=== PATIENT | female | born 1955 | race Two or more races ===

== ENCOUNTER 2016-07-22 14:35 | Observation (INO) | payer MEDICAID ==
[2016-07-22] MEDS ORDERED: LEUCOVORIN CALCIUM IV SCH (15:30)
[2016-07-22] MEDS ORDERED: D5W IV SCH (15:30)
[2016-07-22] MEDS ORDERED: FLUOROURACIL IV SCH (16:30)
[2016-07-22] MEDS ORDERED: BACITRACIN OINTMENT 1 PACKET TP ONE (17:12)
[2016-07-22 19:46] VITALS: BP 156/79; PULSE 69; RESP 16; TEMP 97.9; O2SAT 98
== END 2016-07-22 19:30 ==
LOC: F1N 14:35
PROVIDERS: ADMIT Internal Medicine Hematology & Oncology; ATTEND Internal Medicine Hematology & Oncology
DX: Z51.11 Encounter for antineoplastic chemotherapy (principal); C18.9 Malignant neoplasm of colon, unspecified
CPT/HCPCS: J0640; J9190

== ENCOUNTER 2016-07-29 09:47 | Observation (INO) | payer MEDICAID ==
[2016-07-29 10:06] VITALS: BP 126/75; PULSE 92; RESP 16; TEMP 97.5; O2SAT 95
[2016-07-29] MEDS ORDERED: LEUCOVORIN CALCIUM IV ONE (11:00)
[2016-07-29] MEDS ORDERED: D5W IV ONE (11:00)
[2016-07-29] MEDS ORDERED: FLUOROURACIL IV ONE (12:00)
== END 2016-07-29 16:00 ==
LOC: F1N 09:47
PROVIDERS: ADMIT Internal Medicine Hematology & Oncology; ATTEND Internal Medicine Hematology & Oncology
DX: Z51.11 Encounter for antineoplastic chemotherapy (principal); C18.9 Malignant neoplasm of colon, unspecified
CPT/HCPCS: J0640; J9190

== ENCOUNTER 2016-08-05 09:45 | Observation (INO) | payer MEDICAID ==
[2016-08-05 10:37] VITALS: BP 127/73
[2016-08-05] MEDS ORDERED: LEUCOVORIN CALCIUM IV ONE (11:00)
[2016-08-05] MEDS ORDERED: D5W IV ONE (11:00)
[2016-08-05] MEDS ORDERED: FLUOROURACIL IV ONE (12:00)
[2016-08-05 19:41] VITALS: PULSE 72; RESP 20; TEMP 97.9; O2SAT 95
== END 2016-08-05 14:39 | disposition home or self-care (01) ==
LOC: F1N 09:45
PROVIDERS: ADMIT Internal Medicine Hematology & Oncology; ATTEND Internal Medicine Hematology & Oncology
DX: Z51.11 Encounter for antineoplastic chemotherapy (principal); C18.9 Malignant neoplasm of colon, unspecified
CPT/HCPCS: J0640; J9190

== ENCOUNTER 2016-12-04 11:37 | Inpatient (IN) | payer MEDICAID ==
--- NOTE | 2016-12-04 14:19 | GCON ---
[f rep st] CONSULTATION Corrected report INPATIENT ONCOLOGY CONSULTATION DATE OF CONSULTATION: 12/04/2016 REQUESTING PHYSICIAN: Marcus Batres Jr, MD REASON FOR CONSULTATION: Admission for chemotherapy. HISTORY OF PRESENT ILLNESS: The patient is a 61-year-old woman with metastatic colon cancer. She presented in June 2015 with liver metastases. She was treated with FOLFOX from August through March 2016 with good partial response and then until recently, has been on maintenance capecitabine. Last month, she developed some abdominal pain. A CT scan appeared to show progression of her liver mets, and her CEA was rising from a jasbir of 112 in June up to 889. Dr. Barth elected to treat her with second-line FOLFIRI. They discussed hospice care but she was interested in further therapy. She reports that her abdominal pain has resolved and she is generally feeling well, but I do note she has lost about 12 pounds in the past month or so. PAST MEDICAL HISTORY: Otherwise unremarkable. CURRENT MEDICATIONS: Include Lopressor 50 mg b.i.d., morphine as needed, Voltaren as needed for pain. ALLERGIES: She has no known drug allergies. FAMILY HISTORY: Noncontributory. SOCIAL HISTORY: She is from [facility] and speaks [place]. She was living in a skilled nursing but now apparently is at home with her family. REVIEW OF SYSTEMS: Other than pertinent positives in the HPI, a 14-point review of systems is negative. PHYSICAL EXAMINATION: VITAL SIGNS: Her temperature is 36.6, blood pressure 110/ 70, heart rate 65 and regular, oxygen saturation 97% on room air. GENERAL: She is a thin woman in no acute distress. HEENT: Her sclerae are anicteric. Oropharynx is clear. NECK: Supple. No lymphadenopathy. LUNGS: Clear auscultation bilaterally. CARDIAC: Regular rate and rhythm. No murmurs, gallops , rubs. ABDOMEN: Normoactive bowel sounds. Nontender. Nondistended. EXTREMITIES : Without edema, 2+ pulses. NEUROLOGIC: She is alert and x3. The interview was conducted through a telephonic deposition operator. LABORATORY DATA: White count 10.6, hemoglobin 12.12, platelets 227. Sodium 138 , potassium 4.1, chloride 103, bicarb 24, BUN of 9, creatinine 0.6. Alkaline phosphatase 181, AST 61, ALT 33, total bilirubin 0.92. IMPRESSION: This is a 61-year-old woman with metastatic colorectal cancer now presenting for second-line FOLFIRI chemotherapy. RECOMMENDATIONS: 1. Proceed with chemotherapy as indicated. 2. Will continue to use morphine and other analgesics for pain if it arises. 3. I counseled her on the possibility for significant diarrhea with this regimen and instructed her to take Lomotil if that starts up at home. I emphasized the need for early treatment because the diarrhea can become quite severe in patients if they delay in treating it. We will continue to follow the patient with you while she is in the hospital. /[id number]/MODL Fredy WT 12/04/16, elizabeth KEENE
[2016-12-04] MEDS ORDERED: ONDANSETRON 4 MG/2 ML VIAL IVP PRN (14:37)
[2016-12-04] MEDS ORDERED: ONDANSETRON DISINTEGRATING 4 MG TAB PO PRN ×2 (14:37→14:45)
[2016-12-04] MEDS ORDERED: ALBUTEROL 3 ML DEYVIAL IH PRN (14:37)
[2016-12-04] MEDS ORDERED: ACETAMINOPHEN 325 MG TAB PO PRN (14:37)
[2016-12-04] MEDS ORDERED: ZOLPIDEM TARTRATE 5 MG TAB PO PRN (14:37)
[2016-12-04] MEDS ORDERED: ALBUTEROL 60 PUFFS/8 GM MDI IH PRN (14:37)
[2016-12-04] MEDS ORDERED: ALTEPLASE 2 MG VIAL IVP PRN (14:37)
[2016-12-04] MEDS ORDERED: METOPROLOL TARTRATE 50 MG TAB PO SCH (14:45)
[2016-12-04] MEDS ORDERED: BENADRYL MM PRN (14:45)
[2016-12-04] MEDS ORDERED: MAALOX MM PRN (14:45)
[2016-12-04] MEDS ORDERED: PROCHLORPERAZINE MALEATE 10 MG TAB PO PRN (14:45)
[2016-12-04] MEDS ORDERED: SENNOSIDES/DOCUSATE SODIUM TAB PO PRN (14:45)
[2016-12-04] MEDS ORDERED: LIDOCAINE MM PRN (14:45)
[2016-12-04] MEDS ORDERED: IBUPROFEN 600 MG TAB PO PRN (14:45)
[2016-12-04] MEDS ORDERED: CEPACOL LOZENGE PO PRN (14:45)
[2016-12-04] MEDS ORDERED: ALBUTEROL 200 PUFFS/18 GM MDI IH PRN (14:53)
[2016-12-04] MEDS ORDERED: hydrALAZINE 20 MG/ML VIAL IVP PRN (17:02)
[2016-12-04] MEDS: HYDROCODONE/APAP 5/325 TAB PO PRN (17:16)
[2016-12-04] MEDS ORDERED: PALONOSETRON HCL 0.25 MG/5 ML VIAL IVP SCH (17:30)
[2016-12-04] MEDS ORDERED: DEXAMETHASONE SOD PHOSPHATE 10 MG in NS 50 ML IV SCH (17:30)
--- NOTE | 2016-12-04 17:30 | GHP ---
[f rep st] HISTORY AND PHYSICAL DATE OF ADMISSION: 12/04/2016 CHIEF COMPLAINT: Preparation for chemotherapy. HISTORY OF PRESENT ILLNESS: This is a 61-year-old female admitted for chemotherapy. She has known stage IV colon carcinoma and has been undergoing sequential chemotherapy. Through an research chef, I have determined that she has no other medical complaints at this time. She is reporting intermittent feelings of dizziness, which have been a chronic problem for sometime, without symptoms of vertigo, nausea or vomiting. She denies having fever, chills, sweats, cough, shortness of breath, abdominal pain, nausea or vomiting. She is reporting some pain at the site of a PICC line which was placed today. There are no signs of bleeding. She denies headache or fever. PAST MEDICAL HISTORY: 1. Stage IV metastatic colon carcinoma. 2. Hypertension. 3. GERD. 4. Chronic dizziness and disequilibrium. PAST SURGICAL HISTORY: None. CURRENT MEDICATIONS: Within the EMR and will be reconciled when available. ALLERGIES: Iodinated contrast media. SOCIAL HISTORY: She lives at the [facility]. Denies alcohol or illicit drug use. No use of tobacco. PHYSICAL EXAMINATION: GENERAL: A pleasant alert female who speaks only [place], and information was obtained through research chef. VITAL SIGNS: Mild hypertension at 167/58, heart rate 55. Her room air saturation is normal. There is no respiratory distress. HEENT: Normal. No signs of meningismus or head trauma. LUNGS: Clear to P and A without wheezing or rales. HEART: Singular S1 and S2. No murmur or gallop. ABDOMEN: Thin. Normoactive bowel sounds. There seems to be some very mild tenderness on palpation overall in the abdomen without any palpable mass or rebound noted. She is a thin lady overall. Pulses are 2+ and normal at the femoral region without bruits. EXTREMITIES: No edema, cyanosis or clubbing. NEUROLOGIC: Symmetric and normal. She has appropriate and normal interaction. LABORATORY: No laboratories available for review. Laboratories performed on show white count slightly elevated at 10,000, hemoglobin 12.2. Chemistry panel is normal except for slight elevated glucose of 120. AST is elevated at 61 and an alkaline phosphatase at 181. Red cell indices are normal, and she has a slightly increased neutrophil count at 78%. ASSESSMENT: 1. Stage IV metastatic colon carcinoma. Patient is admitted for chemotherapy of FOLFIRI. 2. Mild hypertension. Her home medications will be reconciled, and we will begin her antihypertensive regimen. 3. Gastroesophageal reflux disease. Currently stable. 4. Chronic dizziness. We will continue her usual medications. 5. Code status is full. 6. Deep venous thrombosis prophylaxis will be with Lovenox. Billing: admit to inpatient status for chemotherapy This admission required 45 minutes. /[id number]/MODL MTDD
[2016-12-04] MEDS ORDERED: LEUCOVORIN CALCIUM IV SCH (18:00)
[2016-12-04] MEDS ORDERED: D5W IV SCH ×3 (18:00→20:05)
[2016-12-04] MEDS ORDERED: IRINOTECAN HCL IV SCH (18:00)
[2016-12-04] MEDS: amLODIPine BESYLATE 5 MG TAB PO SCH (18:01)
[2016-12-04] MEDS: ACYCLOVIR 400 MG TAB PO SCH (18:24)
[2016-12-04] MEDS ORDERED: FLUOROURACIL IV SCH ×2 (20:00→20:05)
[2016-12-04] MEDS: morphINE SR 30 MG TAB PO SCH (20:55)
[2016-12-04] MEDS: MIRTAZAPINE 15 MG ODTAB PO SCH (20:55)
[2016-12-04] MEDS: METOPROLOL TARTRATE 50 MG TAB PO SCH (20:55)
[2016-12-05 05:36] LABS: % IMMATURE GRANULYOCYTES 0.6 % (0.0-1.1); ABSOLUTE IMMATURE GRANULOCYTES 0.03 10^3/uL (0.00-0.10); ADD DIFF? NO; ADD MORPH? NO; ADD SCAN? NO; ATYPICAL LYMPHOCYTE FLAG 0 (0-99); FRAGMENT RBC FLAG 0 (0-99); HEMATOCRIT 33.2 % (38.0-47.0); HEMOGLOBIN 11.1 g/dL (12.6-16.3); LEFT SHIFT FLG 10 (0-99); LIPEMIA HEMOLYSIS FLAG 80 (0-99); MEAN CELL HEMOGLOBIN 29.3 pg (27.9-34.1); MEAN CELL HEMOGLOBIN CONCENTR. 33.4 g/dL (32.4-36.7); MEAN CELL VOLUME 87.6 fL (81.5-99.8); MEAN PLATELET VOLUME 10.9 fL (8.7-11.7); PLATELET CLUMPS FLAG 10 (0-99); PLATELET COUNT 132 10^3/uL (150-400); RED BLOOD CELL COUNT 3.79 10^6/uL (4.18-5.33); RED CELL DISTRIBUTION WIDTH 15.1 % (11.5-15.2)
[2016-12-05 05:46] LABS: ANION GAP 9 mEq/L (8-16); CALCIUM 9.4 mg/dL (8.5-10.4); CARBON DIOXIDE 24 mEq/l (22-31); CHLORIDE 105 mEq/L (97-110); CREATININE 0.6 mg/dL (0.6-1.0); GLOMERULAR FILTRATION RATE > 60; GLUCOSE 182 mg/dL (70-100); POTASSIUM 4.3 mEq/L (3.5-5.2); SODIUM 138 mEq/L (134-144)
[2016-12-05] MEDS ORDERED: NON-FORMULARY NEW DRUG (Omeprazole [Omeprazole] 40 MG) PO SCH (07:30)
[2016-12-05] MEDS: ACYCLOVIR 400 MG TAB PO SCH ×3 (08:36→19:22)
[2016-12-05] MEDS: amLODIPine BESYLATE 5 MG TAB PO SCH (08:37)
[2016-12-05] MEDS: ENOXAPARIN 40 MG/0.4 ML SYR SC SCH (08:41)
[2016-12-05] MEDS: METOPROLOL TARTRATE 50 MG TAB PO SCH ×2 (08:41→21:06)
[2016-12-05] MEDS: PANTOPRAZOLE SODIUM 40 MG TAB PO SCH (08:42)
[2016-12-05] MEDS: morphINE SR 30 MG TAB PO SCH ×2 (08:42→21:07)
--- NOTE | 2016-12-05 10:50 | SOAPPROG ---
SOAP Progress Note Assessment/Plan: Assessment: Metastatic colon cancer Plan: - continue chemo (FOLFIRI) - d/c to home when 48h 5FU infusion complete tomorrow 12/05/16 10:49 Subjective: feels well, no complaints. Objective: exam unchanged Vital Signs Temp Pulse Resp BP Pulse Ox 36.8 C 58 L 16 112/59 L 94 12/05/16 08:35 12/05/16 08:41 12/05/16 08:35 12/05/16 08:41 12/05/16 08:35 Laboratory Results 12/05/16 05:25 12/05/16 05:25 12/04/16 12/05/16 12/06/16 05:59 05:59 05:59 Intake Total 2260 Output Total 1999 Balance 388 ICD10 Worksheet Patient Problems: Problems Problem Status Onset Stomatitis Acute Colon cancer metastasized to liver Chronic
[2016-12-05] MEDS: oxyCODONE IR 5 MG TAB PO PRN (14:59)
[2016-12-05] MEDS: MBX SOLN 30 ML BOTTLE PO PRN (15:00)
--- NOTE | 2016-12-05 16:33 | HOSPPROG ---
Hospitalist Progress Note Assessment/Plan: 61-year-old female admitted for chemotherapy for her stage IV colon cancer. -stage IV colon cancer undergoing FOLFIRI chemotherapy. FOLFIRI involves fluorouracil infusion over a 48 hour period. Patient tolerating the infusion well. -hypertension: In good control -GERD: Stable -depression and anxiety stable -disequilibrium syndrome stable Plan: Continue chemotherapy over the next 48 hours. Discharge following the completion of her chemotherapy Subjective: No complaints the patient speaks only diari a [employer] transmission tester is available by phone. Objective: Vital Signs Temp Pulse Resp BP Pulse Ox 36.6 C 62 16 113/40 L 96 12/05/16 12:00 12/05/16 12:00 12/05/16 12:00 12/05/16 12:00 12/05/16 12:00 Laboratory Results 12/05/16 05:25 12/05/16 05:25 12/04/16 12/05/16 12/06/16 05:59 05:59 05:59 Intake Total 2388 Output Total 2000 Balance 388 - Time Spent With Patient Time Spent with Patient: greater than 25 minutes Time Spent with Patient: Greater than 25 minutes spent on this patients care, greater than 50% of time spent counseling, educating, and coordinating care regarding the above mentioned plan. - Pending Discharge Pending Discharge Within 24 Hours: No Pending Discharge Within 48 Hours: Yes Pending Discharge Date: 12/07/16 Pending Discharge Time: 11:00 - Physical Exam Constitutional: no apparent distress Eyes: PERRL Ears, Nose, Mouth, Throat: moist mucous membranes, hearing normal Cardiovascular: regular rate and rhythym, no murmur, rub, or gallop Respiratory: no respiratory distress, no rales or rhonchi Gastrointestinal: normoactive bowel sounds, soft, non-tender abdomen, no palpable masses Neurologic: AAOx3, CN II-XII Intact Psychiatric: interacting appropriately ICD10 Worksheet Patient Problems: Problems Problem Status Onset Stomatitis Acute Colon cancer metastasized to liver Chronic
[2016-12-05] MEDS ORDERED: FLUOROURACIL IV SCH (19:05)
[2016-12-05] MEDS ORDERED: D5W IV SCH (19:05)
[2016-12-05] MEDS: MIRTAZAPINE 15 MG ODTAB PO SCH (21:07)
[2016-12-06] MEDS: ACYCLOVIR 400 MG TAB PO SCH ×3 (08:19→17:41)
[2016-12-06] MEDS: ENOXAPARIN 40 MG/0.4 ML SYR SC SCH (08:19)
[2016-12-06] MEDS: amLODIPine BESYLATE 5 MG TAB PO SCH (08:20)
[2016-12-06] MEDS: PANTOPRAZOLE SODIUM 40 MG TAB PO SCH (08:20)
[2016-12-06] MEDS: METOPROLOL TARTRATE 50 MG TAB PO SCH ×3 (08:20→20:50)
[2016-12-06] MEDS: morphINE SR 30 MG TAB PO SCH ×2 (08:37→20:48)
--- NOTE | 2016-12-06 09:09 | SOAPPROG ---
ARLENE Progress Note Assessment/Plan: Assessment: 1.) Stage IV colon cancer on the FOLFIRI regimen, the last of the 5 FU continuous infusion to finish today. 2.) HTN 3.) GERD 4.) Discharge planning: Patient appears stable to be sent home after completing her 5 FU infusion today. She states she does not need Rx for discharge and understands the plan for follow up at [facility] in the next week or so. Plan:1.) Home after completion of 5 FU infusion later today. 2.) [facility] appt. for follow up in the next 10 days. 12/06/16 09:06 Subjective: Pt reports that her left side of tongue is sore, but reports no other adverse sx. Reports no diarrhea, or N/V Objective: Pt. in NAD, at bedside. HEENT- anicteric, there is mild Left sided tongue mucosal shallow ulcer Neck- supple Chest- clear CVS- RSR, no extra HS ABD- soft, NT BS +, no mass or HSM, or ascites. EXT- no edema. Skin intact VS and labs as noted above. Vital Signs Temp Pulse Resp BP Pulse Ox 36.8 C 74 16 128/69 H 97 12/06/16 04:00 12/06/16 04:00 12/06/16 04:00 12/06/16 04:00 12/06/16 04:00 Laboratory Results 12/05/16 05:25 12/05/16 05:25 12/05/16 12/06/16 12/07/16 05:59 05:59 05:59 Intake Total 7607 0502 Output Total 1999 1161 Balance 388 2102 ICD10 Worksheet Patient Problems: Problems Problem Status Onset Stomatitis Acute Colon cancer metastasized to liver Chronic
--- NOTE | 2016-12-06 12:08 | HOSPPROG ---
Hospitalist Progress Note Assessment/Plan: 61-year-old female admitted for chemotherapy for her stage IV colon cancer. -stage IV colon cancer undergoing FOLFIRI chemotherapy. FOLFIRI involves fluorouracil infusion over a 48 hour period. Patient tolerating the infusion well. -hypertension: In good control -GERD: Stable -depression and anxiety stable -disequilibrium syndrome stable Plan: Continue chemotherapy over the next 48 hours. Discharge following the completion of her chemotherapy Subjective: case d/w dr barry. no complaints Objective: Vital Signs Temp Pulse Resp BP Pulse Ox 38.6 C H 76 16 115/61 97 12/06/16 11:39 12/06/16 11:39 12/06/16 11:39 12/06/16 11:39 12/06/16 11:39 Laboratory Results 12/05/16 05:25 12/05/16 05:25 12/05/16 12/06/16 12/07/16 05:59 05:59 05:59 Intake Total 2388 3752 Output Total 2000 2600 Balance 388 1152 - Physical Exam Constitutional: no apparent distress, appears nourished Eyes: PERRL, anicteric sclera Ears, Nose, Mouth, Throat: moist mucous membranes, hearing normal Cardiovascular: regular rate and rhythym, no murmur, rub, or gallop Respiratory: no respiratory distress, no rales or rhonchi Gastrointestinal: normoactive bowel sounds, soft, non-tender abdomen Genitourinary: no bladder fullness, No espinoza in urethra Skin: warm, normal color Musculoskeletal: full muscle strength Neurologic: AAOx3 ICD10 Worksheet Patient Problems: Problems Problem Status Onset Stomatitis Acute Colon cancer metastasized to liver Chronic
[2016-12-06] MEDS: oxyCODONE IR 5 MG TAB PO PRN (14:40)
[2016-12-06] MEDS: MIRTAZAPINE 15 MG ODTAB PO SCH (20:48)
[2016-12-06] MEDS: MBX SOLN 30 ML BOTTLE PO PRN (22:07)
[2016-12-07] MEDS: oxyCODONE IR 5 MG TAB PO PRN (09:42)
[2016-12-07] MEDS: amLODIPine BESYLATE 5 MG TAB PO SCH (09:43)
[2016-12-07] MEDS: PANTOPRAZOLE SODIUM 40 MG TAB PO SCH (09:43)
[2016-12-07] MEDS: morphINE SR 30 MG TAB PO SCH ×2 (09:43→21:19)
[2016-12-07] MEDS: ENOXAPARIN 40 MG/0.4 ML SYR SC SCH (09:43)
[2016-12-07] MEDS: METOPROLOL TARTRATE 50 MG TAB PO SCH ×2 (09:43→21:27)
[2016-12-07] MEDS: ACYCLOVIR 400 MG TAB PO SCH ×3 (09:43→18:22)
--- NOTE | 2016-12-07 10:05 | SOAPPROG ---
ARLENE Progress Note Assessment/Plan: Assessment: 1.) Stage IV colon cancer on the FOLFIRI regimen, the last of the 5 FU continuous infusion which has finished today. 2.) HTN 3.) GERD 4.) Discharge planning: Patient appears stable to be sent home after completing her 5 FU infusion, perhaps today. She states she does not need Rx for discharge and understands the plan for follow up at [facility] in the next week or so. Plan:1.) Home after completion of 5 FU infusion later today, if possible, 2.) [facility] appt[facility] for follow up in the next 10 days. 3.) Discharge planning: I attempted to utilize the Language line at the bedside with the assistance of her nurse, Kristen today. A [employer] russian language instructor was not available at 10 AM this AM, and we have scheduled to have an laborer gold leaf call back at 1230 PM today to review her understanding of discharge, med use, symptom control and follow up instructions. Will modify discharge plans after gaining more information with the use of the laborer gold leaf service. 12/07/16 10:01 Subjective: Pt. having constipation and finished her chemotherapy overnight without having emesis or diarrhea. Objective: Afebrile, VSS, as noted here. HEENT- anicteric, no oral thrush Neck- supple, Chest- clear CVS- RSR, no extra HS ABD- BS+, soft, NT, no mass or HSM EXT- edema not present Labs as noted here: Hgb 11.1 Vital Signs Temp Pulse Resp BP Pulse Ox 37.2 C 103 H 18 121/56 H 94 12/07/16 08:00 12/07/16 08:00 12/07/16 08:00 12/07/16 08:00 12/07/16 08:00 Laboratory Results 12/05/16 05:25 12/05/16 05:25 12/06/16 12/07/16 12/08/16 05:59 05:59 05:59 Intake Total 3752 2500 Output Total 2600 Balance 1152 2500 ICD10 Worksheet Patient Problems: Problems Problem Status Onset Stomatitis Acute Colon cancer metastasized to liver Chronic
--- NOTE | 2016-12-07 13:04 | HOSPPROG ---
Hospitalist Progress Note Assessment/Plan: 61-year-old female admitted for chemotherapy for her stage IV colon cancer. -stage IV colon cancer undergoing FOLFIRI chemotherapy. FOLFIRI involves fluorouracil infusion over a 48 hour period. has completed chemotherapy -hypertension: In good control -GERD: Stable -depression and anxiety stable -disequilibrium syndrome stable dispo: will dc tomorrow as I have concern that she will represent this evening if discharged Subjective: case d/w dr rodríguez. history obtained thru [place] historic interpreter. patient expresses desire to stay in hospital "a fe more days" given that she had a readmission after dc recently Objective: Vital Signs Temp Pulse Resp BP Pulse Ox 36.8 C 80 18 103/48 L 95 12/07/16 11:58 12/07/16 11:58 12/07/16 11:58 12/07/16 11:58 12/07/16 11:58 Laboratory Results 12/05/16 05:25 12/05/16 05:25 12/06/16 12/07/16 12/08/16 05:59 05:59 05:59 Intake Total 3752 2500 Output Total 2600 Balance 1152 2500 - Physical Exam Constitutional: no apparent distress, appears nourished Eyes: PERRL, anicteric sclera Ears, Nose, Mouth, Throat: hearing normal Cardiovascular: regular rate and rhythym, no murmur, rub, or gallop Respiratory: no respiratory distress, no rales or rhonchi Gastrointestinal: normoactive bowel sounds, soft, non-tender abdomen Genitourinary: no bladder fullness, No espinoza in urethra Skin: warm, normal color Musculoskeletal: full muscle strength, no muscle tenderness Neurologic: AAOx3 Psychiatric: interacting appropriately, not anxious ICD10 Worksheet Patient Problems: Problems Problem Status Onset Stomatitis Acute Colon cancer metastasized to liver Chronic
[2016-12-07] MEDS: MBX SOLN 30 ML BOTTLE PO PRN ×3 (15:11→21:20)
[2016-12-07] MEDS: LOPERAMIDE HCL 2 MG CAP PO PRN ×2 (18:22→21:19)
[2016-12-07] MEDS: MIRTAZAPINE 15 MG ODTAB PO SCH (21:19)
[2016-12-08] MEDS: morphINE SR 30 MG TAB PO SCH ×2 (08:43→22:15)
[2016-12-08] MEDS: amLODIPine BESYLATE 5 MG TAB PO SCH (08:43)
[2016-12-08] MEDS: PANTOPRAZOLE SODIUM 40 MG TAB PO SCH (08:43)
[2016-12-08] MEDS: METOPROLOL TARTRATE 50 MG TAB PO SCH ×2 (08:44→22:09)
[2016-12-08] MEDS: ACYCLOVIR 400 MG TAB PO SCH ×2 (08:44→18:11)
[2016-12-08] MEDS: ENOXAPARIN 40 MG/0.4 ML SYR SC SCH (08:44)
[2016-12-08] MEDS: MBX SOLN 30 ML BOTTLE PO PRN ×3 (08:45→16:28)
--- NOTE | 2016-12-08 10:42 | HOSPPROG ---
Hospitalist Progress Note Assessment/Plan: 61-year-old female admitted for chemotherapy for her stage IV colon cancer. -stage IV colon cancer undergoing FOLFIRI chemotherapy. FOLFIRI involves fluorouracil infusion over a 48 hour period. has completed chemotherapy -hypertension: In good control -GERD: Stable -depression and anxiety stable -disequilibrium syndrome stable dispo: home today > 30 minutes Subjective: c/o tongue pain Objective: Vital Signs Temp Pulse Resp BP Pulse Ox 36.5 C 74 16 131/67 H 96 12/08/16 08:31 12/08/16 08:31 12/08/16 08:31 12/08/16 08:31 12/08/16 08:31 Laboratory Results 12/05/16 05:25 12/05/16 05:25 12/07/16 12/08/16 12/09/16 05:59 05:59 05:59 Intake Total 2500 850 Balance 2500 850 - Physical Exam Constitutional: no apparent distress, appears nourished Eyes: PERRL, anicteric sclera Ears, Nose, Mouth, Throat: moist mucous membranes, hearing normal Cardiovascular: regular rate and rhythym, no murmur, rub, or gallop Respiratory: no respiratory distress, no rales or rhonchi Gastrointestinal: normoactive bowel sounds, soft, non-tender abdomen Genitourinary: no bladder fullness, No espinoza in urethra Skin: warm, normal color Musculoskeletal: full muscle strength, no muscle tenderness Neurologic: AAOx3 ICD10 Worksheet Patient Problems: Problems Problem Status Onset Stomatitis Acute Colon cancer metastasized to liver Chronic
--- NOTE | 2016-12-08 11:12 | PDIAF ---
- Diagnosis Diagnosis: metastatic colon cancer Code Status: Full Code - Medication Management Discharge Medications: Medications to Continue on Transfer Loperamide HCl [Loperamide] 2 mg PO DAILY PRN 11/09/15 [Last Taken Unknown] Ondansetron Odt [Zofran Odt 4 mg (*)] 8 mg PO Q8 PRN 11/09/15 [Last Taken ] Sennosides/Docusate Sodium [Senokot-S] 1 tab PO BID PRN 11/09/15 [Last Taken 04/04 08:00] Metoprolol Tartrate [Lopressor 50 mg (*)] 50 mg PO BID 11/26/15 [Last Taken 08:00] Acyclovir [Zovirax 400 mg (*)] 400 mg PO TIDMEAL 01/01/16 [Last Taken 06/10/16 12:00] Ibuprofen [Motrin (*)] 600 mg PO Q8 PRN 01/01/16 [Last Taken Unknown] morphINE SR [MS Contin/Oramorph SR 30 mg (*)] 30 mg PO BID 01/02/16 [Last Taken 06/10/16 08:00] Benzocaine/Menthol 15/4 [Cepacol Lozenge] 1 ea PO Q2 PRN 04/03/16 [Last Taken Unknown] Mirtazapine [Remeron soltab 15 mg (*)] 7.5 mg PO HS 04/03/16 [Last Taken ] amLODIPine BESYLATE [Norvasc 5 mg (*)] 5 mg PO DAILY 04/03/16 [Last Taken ] oxyCODONE IR [Oxycodone Ir (*)] 5 mg PO Q4 PRN 04/03/16 [Last Taken Unknown] Maalox/Benadryl/Lidocaine Suspension 5 ml MM Q2 PRN 12/04/16 [Last Taken Unknown ] Omeprazole 40 mg PO DAILYAC 12/04/16 [Last Taken Unknown] Prochlorperazine Maleate [Compazine 10mg (*)] 10 mg PO Q6 PRN 12/04/16 [Last Taken Unknown] Lidocaine 2% Viscous 10 ml PO Q4 PRN #100 ml 12/08/16 [Last Taken Unknown] Discharge Medications: Refer to the Discharge Home Medication list for PRN reason. - Orders Services needed: Home [facility] Care Face to Face: I certify that this patient was under my care and that I had the required [id number] encounter meeting the encounter requirements on the discharge day. My findings support the fact that the patient is homebound as defined in CMS Chapter 7 Medicare Benefits Manual 30.1.1, The condition of the patient is such that there exists a normal inability to leave home and consequently, leaving home would require a considerable and taxing effort. - Follow Up Care Current Providers and Referrals: Marcus Batres JR, MD [Primary Care Provider] -
--- NOTE | 2016-12-08 12:15 | GDS ---
[f rep st] DISCHARGE SUMMARY DISCHARGE DIAGNOSES: 1. Metastatic colon cancer undergoing chemotherapy while here. 2. Hypertension. 3. Gastroesophageal reflux disease. 4. Tongue lesion felt secondary to chemotherapy. HOSPITAL COURSE: Please see admission history and physical by Dr. Marcus Batres. Patient castillo weathers for elective chemotherapy. She received it while inpatient. The chemotherapy regimen is FOLFIR I. She tolerated it well without neutropenia or fever. She did have this tongue lesion. I spoke with the patient through the [facility] clearance coordinator, and the patient expressed a desire to stay in the hospital a couple of days following the cessation of chemotherapy because she had a readmission at some point. She did stay 1 additional day, but at this point in time, the patient is eating well , tolerating well and going home today. She had [facility] been in a penit[facility]. She will be dis charged home. She will have [facility]. I did give her some viscous lidocaine for her ivan conradJeanne /[id number]/MODL
[2016-12-08] MEDS: oxyCODONE IR 5 MG TAB PO PRN ×2 (12:41→22:18)
--- NOTE | 2016-12-08 13:00 | SOAPPROG ---
SOAP Progress Note Assessment/Plan: Assessment: Assessment: 1.) Stage IV colon cancer on the FOLFIRI regimen, 2.) HTN 3.) GERD 4.) mucositis developing over the last 24 hours Plan:will hold discharge today, may need hydration, continue with pain control, topical rx 12/08/16 12:57 Subjective: Mouth pain Objective: Vital Signs Temp Pulse Resp BP Pulse Ox 98.1 F 74 16 131/67 H 96 12/08/16 12:45 12/08/16 08:31 12/08/16 08:31 12/08/16 08:31 12/08/16 08:31 Laboratory Results 12/05/16 05:25 12/05/16 05:25 12/07/16 12/08/16 12/09/16 05:59 05:59 05:59 Intake Total 2500 850 Balance 2500 850 Physical Exam - Physical Exam General Appearance: moderate distress EENT: other (mucositis lip and lateral tongue) Respiratory: normal breath sounds Cardiac/Chest: regular rate, rhythm Abdomen: normal bowel sounds, non-tender ICD10 Worksheet Patient Problems: Problems Problem Status Onset Stomatitis Acute Colon cancer metastasized to liver Chronic
[2016-12-08] MEDS: MIRTAZAPINE 15 MG ODTAB PO SCH (22:15)
[2016-12-09] MEDS: PANTOPRAZOLE SODIUM 40 MG TAB PO SCH (06:28)
[2016-12-09] MEDS: MBX SOLN 30 ML BOTTLE PO PRN ×6 (06:30→22:39)
[2016-12-09] MEDS: METOPROLOL TARTRATE 50 MG TAB PO SCH ×2 (09:36→20:13)
[2016-12-09] MEDS: amLODIPine BESYLATE 5 MG TAB PO SCH (09:37)
[2016-12-09] MEDS: ENOXAPARIN 40 MG/0.4 ML SYR SC SCH (09:37)
[2016-12-09] MEDS: ACYCLOVIR 400 MG TAB PO SCH ×3 (09:37→17:52)
[2016-12-09] MEDS: morphINE SR 30 MG TAB PO SCH ×2 (09:37→20:13)
--- NOTE | 2016-12-09 11:20 | SOAPPROG ---
SOAP Progress Note Assessment/Plan: Assessment: Assessment: 1.) Stage IV colon cancer on the FOLFIRI regimen, 2.) HTN 3.) GERD 4.) mucositis . PO intake remains poor, mouth hurts Plan: continue with pain control, topical rx. Start IVF today 12/08/16 12:57 12/09/16 11:17 Subjective: Mouth pain Objective: Vital Signs Temp Pulse Resp BP Pulse Ox 97.9 F 71 16 116/63 95 12/09/16 07:35 12/09/16 07:35 12/09/16 07:35 12/09/16 07:35 12/09/16 07:35 Laboratory Results 12/05/16 05:25 12/05/16 05:25 12/08/16 12/09/16 12/10/16 05:59 05:59 05:59 Intake Total 850 405 Balance 850 405 Physical Exam - Physical Exam General Appearance: mild distress EENT: other (grade 2 stomatitis), No pharynx normal Respiratory: lungs clear Abdomen: normal bowel sounds, non-tender ICD10 Worksheet Patient Problems: Problems Problem Status Onset Stomatitis Acute Colon cancer metastasized to liver Chronic
[2016-12-09] MEDS: NS W/ 20 KCl/L 1,000 ML IV SCH ×2 (12:18→22:41)
--- NOTE | 2016-12-09 15:23 | HOSPPROG ---
Hospitalist Progress Note Assessment/Plan: 61-year-old female admitted for chemotherapy for her stage IV colon cancer. -stage IV colon cancer undergoing FOLFIRI chemotherapy. FOLFIRI involves fluorouracil infusion over a 48 hour period. has completed chemotherapy -hypertension: In good control mucusitis: magic mouthwash q2 -GERD: Stable -depression and anxiety stable -disequilibrium syndrome stable dispo: poor po intake precludes safe dc Subjective: bad oral pain. IVF started Objective: Vital Signs Temp Pulse Resp BP Pulse Ox 36.6 C 64 16 105/60 95 12/09/16 11:26 12/09/16 11:26 12/09/16 11:26 12/09/16 11:26 12/09/16 11:26 Laboratory Results 12/05/16 05:25 12/05/16 05:25 12/08/16 12/09/16 12/10/16 05:59 05:59 05:59 Intake Total 850 405 Balance 850 405 - Physical Exam Constitutional: No no apparent distress, No not in pain Eyes: PERRL, anicteric sclera Ears, Nose, Mouth, Throat: moist mucous membranes, other (mucusitis) Cardiovascular: regular rate and rhythym, no murmur, rub, or gallop Respiratory: no respiratory distress, no rales or rhonchi Gastrointestinal: normoactive bowel sounds, soft, non-tender abdomen Genitourinary: No espinoza in urethra Skin: warm, normal color Musculoskeletal: full muscle strength, no muscle tenderness Neurologic: AAOx3 ICD10 Worksheet Patient Problems: Problems Problem Status Onset Stomatitis Acute Colon cancer metastasized to liver Chronic
[2016-12-09] MEDS: MIRTAZAPINE 15 MG ODTAB PO SCH (20:13)
[2016-12-09] MEDS: oxyCODONE IR 5 MG TAB PO PRN (20:29)
[2016-12-10] MEDS: PANTOPRAZOLE SODIUM 40 MG TAB PO SCH (06:28)
[2016-12-10] MEDS: amLODIPine BESYLATE 5 MG TAB PO SCH (08:09)
[2016-12-10] MEDS: METOPROLOL TARTRATE 50 MG TAB PO SCH ×2 (08:09→20:50)
[2016-12-10] MEDS: ACYCLOVIR 400 MG TAB PO SCH ×3 (08:09→18:14)
[2016-12-10] MEDS: morphINE SR 30 MG TAB PO SCH ×2 (08:09→20:50)
[2016-12-10] MEDS: ENOXAPARIN 40 MG/0.4 ML SYR SC SCH (08:10)
[2016-12-10] MEDS: MBX SOLN 30 ML BOTTLE PO PRN ×5 (08:13→20:53)
[2016-12-10] MEDS: NS W/ 20 KCl/L 1,000 ML IV SCH ×2 (08:14→20:53)
--- NOTE | 2016-12-10 11:27 | SOAPPROG ---
SOAP Progress Note Assessment/Plan: Assessment: Assessment: 1.) Stage IV colon cancer on the FOLFIRI regimen, 2.) HTN 3.) GERD 4.) mucositis . PO intake remains poor, mouth hurts Plan: continue with pain control, topical rx. Continue IVF 12/08/16 12:57 12/09/16 11:17 12/10/16 11:25 Subjective: Mouth pain may be a bit worse Objective: Vital Signs Temp Pulse Resp BP Pulse Ox 98 F 77 18 128/44 H 96 12/10/16 07:55 12/10/16 07:55 12/10/16 07:55 12/10/16 07:55 12/10/16 07:55 Laboratory Results 12/05/16 05:25 12/05/16 05:25 12/09/16 12/10/16 12/11/16 05:59 05:59 05:59 Intake Total 405 1730 Output Total 1200 800 Balance 405 530 -800 Physical Exam - Physical Exam General Appearance: mild distress EENT: other (grade 2 mucositis) Respiratory: normal breath sounds Cardiac/Chest: regular rate, rhythm Abdomen: normal bowel sounds, non-tender ICD10 Worksheet Patient Problems: Problems Problem Status Onset Stomatitis Acute Colon cancer metastasized to liver Chronic
--- NOTE | 2016-12-10 13:48 | HOSPPROG ---
Hospitalist Progress Note Assessment/Plan: 61-year-old female admitted for chemotherapy for her stage IV colon cancer. -stage IV colon cancer undergoing FOLFIRI chemotherapy. FOLFIRI involves fluorouracil infusion over a 48 hour period. has completed chemotherapy -hypertension: In good control mucusitis: magic mouthwash q2 -GERD: Stable -depression and anxiety stable -disequilibrium syndrome stable dispo: poor po intake precludes safe dc Subjective: still w mucusitis and mouth pain. poor po intake Objective: Vital Signs Temp Pulse Resp BP Pulse Ox 36.9 C 66 18 112/70 99 12/10/16 11:38 12/10/16 11:38 12/10/16 11:38 12/10/16 11:38 12/10/16 11:38 Laboratory Results 12/05/16 05:25 12/05/16 05:25 12/09/16 12/10/16 12/11/16 05:59 05:59 05:59 Intake Total 405 1730 Output Total 1200 800 Balance 405 530 -800 - Physical Exam Constitutional: no apparent distress, appears nourished Eyes: PERRL, anicteric sclera Ears, Nose, Mouth, Throat: other (mucusitis) Cardiovascular: regular rate and rhythym, no murmur, rub, or gallop Respiratory: no respiratory distress, no rales or rhonchi Gastrointestinal: normoactive bowel sounds, soft, non-tender abdomen Genitourinary: no bladder fullness, No espinoza in urethra Skin: warm, normal color Musculoskeletal: full muscle strength, no muscle tenderness Neurologic: AAOx3, sensation intact bilaterally ICD10 Worksheet Patient Problems: Problems Problem Status Onset Stomatitis Acute Colon cancer metastasized to liver Chronic
[2016-12-10] MEDS: HYDROCODONE/APAP 5/325 TAB PO PRN (18:19)
[2016-12-10] MEDS: MIRTAZAPINE 15 MG ODTAB PO SCH (20:50)
[2016-12-11] MEDS: MBX SOLN 30 ML BOTTLE PO PRN ×6 (07:34→20:43)
[2016-12-11] MEDS: HYDROCODONE/APAP 5/325 TAB PO PRN ×3 (07:44→20:42)
[2016-12-11] MEDS: morphINE SR 30 MG TAB PO SCH ×2 (09:08→20:42)
[2016-12-11] MEDS: ACYCLOVIR 400 MG TAB PO SCH ×3 (09:08→18:35)
[2016-12-11] MEDS: amLODIPine BESYLATE 5 MG TAB PO SCH (09:08)
[2016-12-11] MEDS: METOPROLOL TARTRATE 50 MG TAB PO SCH ×2 (09:08→20:42)
[2016-12-11] MEDS: PANTOPRAZOLE SODIUM 40 MG TAB PO SCH (09:08)
[2016-12-11] MEDS: ENOXAPARIN 40 MG/0.4 ML SYR SC SCH (09:09)
--- NOTE | 2016-12-11 13:10 | SOAPPROG ---
SOAP Progress Note Assessment/Plan: Assessment: Assessment: 1.) Stage IV colon cancer on the FOLFIRI regimen, 2.) HTN 3.) GERD 4.) mucositis . PO intake remains poor, mouth hurts Plan: continue with pain control, topical rx. Continue IVF, check labs, try glutamine 12/08/16 12:57 12/09/16 11:17 12/10/16 11:25 12/11/16 13:09 Subjective: Mouth pain Objective: Vital Signs Temp Pulse Resp BP Pulse Ox 97.6 F 66 18 132/66 H 96 12/11/16 11:25 12/11/16 11:25 12/11/16 11:25 12/11/16 11:25 12/11/16 11:25 Laboratory Results 12/05/16 05:25 12/05/16 05:25 12/10/16 12/11/16 12/12/16 05:59 05:59 05:59 Intake Total 1730 2400 1200 Output Total 1200 3900 1600 Balance 530 -1500 -400 Physical Exam - Physical Exam General Appearance: alert, mild distress EENT: other (gr 2 stomatitis) ICD10 Worksheet Patient Problems: Problems Problem Status Onset Stomatitis Acute Colon cancer metastasized to liver Chronic
[2016-12-11 14:20] LABS: ALANINE AMINOTRANSFERASE 26 IU/L (9-52); ALBUMIN 2.9 g/dL (3.5-5.0); ALKALINE PHOSPHATASE 126 IU/L (38-126); ANION GAP 7 mEq/L (8-16); ASPARTATE AMINOTRANSFERASE 28 IU/L (14-46); BILIRUBIN,TOTAL 0.5 mg/dL (0.1-1.4); CALCIUM 8.1 mg/dL (8.5-10.4); CARBON DIOXIDE 22 mEq/l (22-31); CHLORIDE 109 mEq/L (97-110); CREATININE 0.5 mg/dL (0.6-1.0); GLOMERULAR FILTRATION RATE > 60; GLUCOSE 124 mg/dL (70-100); SODIUM 138 mEq/L (134-144); TOTAL PROTEIN 5.5 g/dL (6.3-8.2)
[2016-12-11 14:24] LABS: % IMMATURE GRANULYOCYTES 0.7 % (0.0-1.1); ABSOLUTE IMMATURE GRANULOCYTES 0.02 10^3/uL (0.00-0.10); ADD DIFF? NO; ADD MORPH? NO; ADD SCAN? NO; ATYPICAL LYMPHOCYTE FLAG 0 (0-99); FRAGMENT RBC FLAG 0 (0-99); HEMATOCRIT 28.2 % (38.0-47.0); HEMOGLOBIN 8.9 g/dL (12.6-16.3); LEFT SHIFT FLG 60 (0-99); LIPEMIA HEMOLYSIS FLAG 80 (0-99); MEAN CELL HEMOGLOBIN 28.4 pg (27.9-34.1); MEAN CELL HEMOGLOBIN CONCENTR. 31.6 g/dL (32.4-36.7); MEAN CELL VOLUME 90.1 fL (81.5-99.8); PLATELET CLUMPS FLAG 10 (0-99); PLATELET COUNT 58 10^3/uL (150-400); RED BLOOD CELL COUNT 3.13 10^6/uL (4.18-5.33); RED CELL DISTRIBUTION WIDTH 15.7 % (11.5-15.2)
--- NOTE | 2016-12-11 14:54 | HOSPPROG ---
Hospitalist Progress Note Assessment/Plan: 61-year-old female admitted for chemotherapy for her stage IV colon cancer. -stage IV colon cancer undergoing FOLFIRI chemotherapy. FOLFIRI involves fluorouracil infusion over a 48 hour period. has completed chemotherapy -hypertension: In good control mucusitis: magic mouthwash q2 glutamine added requiring IVF thrombocytopenia: hold lmwh -GERD: Stable -depression and anxiety stable -disequilibrium syndrome stable dispo: poor po intake precludes safe dc Subjective: still w severe mouth pain that precludes eating. case d/w dr barrios. [facility] securities dealer line used Objective: Vital Signs Temp Pulse Resp BP Pulse Ox 36.4 C 66 18 132/66 H 96 12/11/16 11:25 12/11/16 11:25 12/11/16 11:25 12/11/16 11:25 12/11/16 11:25 Laboratory Results 12/11/16 13:46 12/11/16 13:46 12/10/16 12/11/16 12/12/16 05:59 05:59 05:59 Intake Total 1730 2400 1200 Output Total 1200 3900 1600 Balance 530 -1500 -400 - Physical Exam Constitutional: no apparent distress, appears nourished Eyes: PERRL, anicteric sclera, other Ears, Nose, Mouth, Throat: other (mucusitis) Cardiovascular: regular rate and rhythym, no murmur, rub, or gallop Respiratory: no respiratory distress, no rales or rhonchi, clear to auscultation Gastrointestinal: normoactive bowel sounds, soft, non-tender abdomen Genitourinary: no bladder fullness, No espinoza in urethra Skin: warm, normal color Musculoskeletal: full muscle strength, no muscle tenderness Neurologic: AAOx3 Psychiatric: interacting appropriately ICD10 Worksheet Patient Problems: Problems Problem Status Onset Stomatitis Acute Colon cancer metastasized to liver Chronic
[2016-12-11] MEDS: GLUTAMINE (GLUTASOLVE) 1 EACH PKT PO SCH ×2 (16:43→20:43)
[2016-12-11] MEDS: NS W/ 20 KCl/L 1,000 ML IV SCH (17:11)
[2016-12-11] MEDS: MIRTAZAPINE 15 MG ODTAB PO SCH (20:43)
[2016-12-12] MEDS: NS W/ 20 KCl/L 1,000 ML IV SCH ×3 (03:00→22:35)
[2016-12-12] MEDS: MBX SOLN 30 ML BOTTLE PO PRN (06:27)
[2016-12-12] MEDS: GLUTAMINE (GLUTASOLVE) 1 EACH PKT PO SCH ×4 (06:28→21:10)
[2016-12-12 07:12] LABS: ADD DIFF? NO; ADD MORPH? NO; ADD SCAN? NO; ATYPICAL LYMPHOCYTE FLAG 0 (0-99); FRAGMENT RBC FLAG 0 (0-99); HEMATOCRIT 27.3 % (38.0-47.0); HEMOGLOBIN 8.8 g/dL (12.6-16.3); LEFT SHIFT FLG 40 (0-99); LIPEMIA HEMOLYSIS FLAG 80 (0-99); MEAN CELL HEMOGLOBIN 29.1 pg (27.9-34.1); MEAN CELL HEMOGLOBIN CONCENTR. 32.2 g/dL (32.4-36.7); MEAN CELL VOLUME 90.4 fL (81.5-99.8); MEAN PLATELET VOLUME 12.7 fL (8.7-11.7); PLATELET CLUMPS FLAG 0 (0-99); PLATELET COUNT 54 10^3/uL (150-400); RED BLOOD CELL COUNT 3.02 10^6/uL (4.18-5.33); RED CELL DISTRIBUTION WIDTH 15.7 % (11.5-15.2)
[2016-12-12 07:24] LABS: ALANINE AMINOTRANSFERASE 30 IU/L (9-52); ALBUMIN 2.6 g/dL (3.5-5.0); ALKALINE PHOSPHATASE 126 IU/L (38-126); ANION GAP 8 mEq/L (8-16); ASPARTATE AMINOTRANSFERASE 24 IU/L (14-46); BILIRUBIN,TOTAL 0.4 mg/dL (0.1-1.4); CALCIUM 8.1 mg/dL (8.5-10.4); CARBON DIOXIDE 22 mEq/l (22-31); CHLORIDE 111 mEq/L (97-110); CREATININE 0.5 mg/dL (0.6-1.0); GLOMERULAR FILTRATION RATE > 60; GLUCOSE 93 mg/dL (70-100); SODIUM 141 mEq/L (134-144); TOTAL PROTEIN 5.1 g/dL (6.3-8.2)
[2016-12-12] MEDS: PANTOPRAZOLE SODIUM 40 MG TAB PO SCH (08:19)
[2016-12-12] MEDS: morphINE SR 30 MG TAB PO SCH ×2 (08:19→21:10)
[2016-12-12] MEDS: ACYCLOVIR 400 MG TAB PO SCH ×3 (08:19→17:50)
[2016-12-12] MEDS: amLODIPine BESYLATE 5 MG TAB PO SCH (08:19)
[2016-12-12] MEDS: METOPROLOL TARTRATE 50 MG TAB PO SCH ×2 (08:20→21:10)
[2016-12-12] MEDS ORDERED: LIDOCAINE 2% VISCOUS 15 ML UDCUP PO PRN (09:06)
--- NOTE | 2016-12-12 09:13 | HOSPPROG ---
Hospitalist Progress Note Assessment/Plan: 61-year-old female admitted for chemotherapy for her stage IV colon cancer, now with poor oral intake in setting of severe mucositis, ?esophagitis -stage IV colon cancer undergoing FOLFIRI chemotherapy. FOLFIRI involves fluorouracil infusion over a 48 hour period. has completed chemotherapy -hypertension: In good control mucusitis: magic mouthwash q2 is not effective. pt wishes to try 2% viscous lido instead of magic mouthwash check HSV swab (on oral acyclovir), if positive will discuss with ID given reports of esophageal pain, might change to IV therapy cont glutamine cont IVF's pancytopenia with neutropenia secondary to chemo: ANC 600, no fevers thrombocytopenia: hold lmwh -GERD: Stable, cont PPI -depression and anxiety stable -disequilibrium syndrome stable dispo: poor po intake precludes safe dc Subjective: Pt continues to have significant oral pain 7-02/26, reports magic mouthwash not significantly helping. Wishes to try straight viscous lidocaine. No fevers. No CP or SOB. Objective: Vital Signs Temp Pulse Resp BP Pulse Ox 36.6 C 81 16 145/69 H 96 12/12/16 07:53 12/12/16 07:53 12/12/16 07:53 12/12/16 07:53 12/12/16 07:53 Laboratory Results 12/12/16 06:25 12/12/16 06:25 12/11/16 12/12/16 12/13/16 05:59 05:59 05:59 Intake Total 2400 3900 Output Total 3900 2000 Balance -1500 1900 - Physical Exam Constitutional: no apparent distress Eyes: PERRL Ears, Nose, Mouth, Throat: moist mucous membranes, other (multiple confluent vesicular lesions of tongue, oral mucosa) Cardiovascular: regular rate and rhythym Respiratory: no respiratory distress, clear to auscultation Gastrointestinal: normoactive bowel sounds, soft, non-tender abdomen Skin: warm Musculoskeletal: full muscle strength Neurologic: AAOx3 Psychiatric: interacting appropriately ICD10 Worksheet Patient Problems: Problems Problem Status Onset Stomatitis Acute Colon cancer metastasized to liver Chronic
--- NOTE | 2016-12-12 11:33 | SOAPPROG ---
SOAP Progress Note Assessment/Plan: Assessment: Assessment: 1.) Stage IV colon cancer on the FOLFIRI regimen,labs ok 2.) HTN 3.) GERD 4.) mucositis . PO intake remains poor, mouth hurts Plan: continue with pain control, topical rx. Continue IVF, try glutamine, viscous xylocaine 12/08/16 12:57 12/09/16 11:17 12/10/16 11:25 12/11/16 13:09 12/12/16 11:32 Subjective: mouth pain Objective: Vital Signs Temp Pulse Resp BP Pulse Ox 97.9 F 81 16 145/69 H 96 12/12/16 07:53 12/12/16 07:53 12/12/16 07:53 12/12/16 07:53 12/12/16 07:53 Laboratory Results 12/12/16 06:25 12/12/16 06:25 12/11/16 12/12/16 12/13/16 05:59 05:59 05:59 Intake Total 2400 3900 Output Total 3900 2000 Balance -1500 1900 Physical Exam - Physical Exam General Appearance: mild distress EENT: other (grade 2 stomatitis) ICD10 Worksheet Patient Problems: Problems Problem Status Onset Stomatitis Acute Colon cancer metastasized to liver Chronic
[2016-12-12] MEDS: LIDOCAINE 2% PO PRN ×3 (13:18→22:34)
[2016-12-12] MEDS: VISCOUS PO PRN ×3 (13:18→22:34)
[2016-12-12] MEDS: oxyCODONE IR 5 MG TAB PO PRN ×2 (17:50→22:34)
[2016-12-12] MEDS: MIRTAZAPINE 15 MG ODTAB PO SCH (21:11)
[2016-12-13] MEDS: GLUTAMINE (GLUTASOLVE) 1 EACH PKT PO SCH ×4 (06:01→20:50)
[2016-12-13 07:05] LABS: ALANINE AMINOTRANSFERASE 28 IU/L (9-52); ALBUMIN 2.4 g/dL (3.5-5.0); ALKALINE PHOSPHATASE 111 IU/L (38-126); ANION GAP 6 mEq/L (8-16); ASPARTATE AMINOTRANSFERASE 22 IU/L (14-46); BILIRUBIN,TOTAL 0.4 mg/dL (0.1-1.4); CALCIUM 8.1 mg/dL (8.5-10.4); CARBON DIOXIDE 24 mEq/l (22-31); CHLORIDE 112 mEq/L (97-110); CREATININE 0.5 mg/dL (0.6-1.0); GLOMERULAR FILTRATION RATE > 60; GLUCOSE 93 mg/dL (70-100); POTASSIUM 3.9 mEq/L (3.5-5.2); SODIUM 142 mEq/L (134-144); TOTAL PROTEIN 4.8 g/dL (6.3-8.2)
[2016-12-13 07:37] LABS: ADD DIFF? NO; ADD MORPH? NO; ADD SCAN? NO; ATYPICAL LYMPHOCYTE FLAG 10 (0-99); FRAGMENT RBC FLAG 0 (0-99); HEMATOCRIT 26.2 % (38.0-47.0); HEMOGLOBIN 8.5 g/dL (12.6-16.3); LEFT SHIFT FLG 20 (0-99); LIPEMIA HEMOLYSIS FLAG 80 (0-99); MEAN CELL HEMOGLOBIN 29.4 pg (27.9-34.1); MEAN CELL HEMOGLOBIN CONCENTR. 32.4 g/dL (32.4-36.7); MEAN CELL VOLUME 90.7 fL (81.5-99.8); PLATELET CLUMPS FLAG 0 (0-99); PLATELET COUNT 62 10^3/uL (150-400); RED BLOOD CELL COUNT 2.89 10^6/uL (4.18-5.33); RED CELL DISTRIBUTION WIDTH 15.9 % (11.5-15.2)
[2016-12-13] MEDS ORDERED: HYDROCODONE/APAP 5/325 TAB PO PRN (08:15)
[2016-12-13] MEDS ORDERED: oxyCODONE IR 5 MG TAB PO PRN (08:17)
[2016-12-13] MEDS: PANTOPRAZOLE SODIUM 40 MG TAB PO SCH (08:51)
[2016-12-13] MEDS: morphINE SR 30 MG TAB PO SCH ×2 (08:52→20:50)
[2016-12-13] MEDS: amLODIPine BESYLATE 5 MG TAB PO SCH (08:52)
[2016-12-13] MEDS: ACYCLOVIR 400 MG TAB PO SCH ×3 (08:52→18:05)
[2016-12-13] MEDS: METOPROLOL TARTRATE 50 MG TAB PO SCH ×2 (08:52→20:50)
[2016-12-13] MEDS: LIDOCAINE 2% PO PRN ×4 (08:53→22:11)
[2016-12-13] MEDS: VISCOUS PO PRN ×4 (08:53→22:11)
--- NOTE | 2016-12-13 10:11 | HOSPPROG ---
Hospitalist Progress Note Assessment/Plan: 61-year-old female admitted for chemotherapy for her stage IV colon cancer, now with poor oral intake in setting of severe mucositis, ?esophagitis -stage IV colon cancer undergoing FOLFIRI chemotherapy. FOLFIRI involves fluorouracil infusion over a 48 hour period. has completed chemotherapy -hypertension: good control mucusitis: poor pain control cont MS Contin, viscous lidocaine (pt prefers over magic mouthwash), add roxanol on acyclovir cont glutamine cont IVF's until po intake improved pancytopenia with neutropenia secondary to chemo: ANC 320, no fevers thrombocytopenia: hold lmwh -GERD: Stable, cont PPI -depression and anxiety stable -disequilibrium syndrome stable dispo: poor po intake precludes safe dc Subjective: Pt still has severe oral pain, 8-9/10. Minimal oral intake. No fevers/chills. No CP or SOB Objective: Vital Signs Temp Pulse Resp BP Pulse Ox 36.0 C 78 16 122/70 H 96 12/13/16 08:15 12/13/16 08:52 12/13/16 08:15 12/13/16 08:52 12/13/16 08:15 Laboratory Results 12/13/16 06:08 12/13/16 06:08 12/12/16 12/13/16 12/14/16 05:59 05:59 05:59 Intake Total 3900 2462 Output Total 1999 3400 1200 Balance 1900 938 -1200 - Physical Exam Constitutional: no apparent distress Eyes: PERRL Ears, Nose, Mouth, Throat: moist mucous membranes, oral ulcer Cardiovascular: regular rate and rhythym Respiratory: no respiratory distress, clear to auscultation Gastrointestinal: normoactive bowel sounds, soft, non-tender abdomen Skin: warm Musculoskeletal: full muscle strength Neurologic: AAOx3 Psychiatric: interacting appropriately ICD10 Worksheet Patient Problems: Problems Problem Status Onset Stomatitis Acute Colon cancer metastasized to liver Chronic
[2016-12-13] MEDS: morphINE 10 MG/0.5 ML UDSYR PO PRN ×3 (11:59→22:32)
[2016-12-13] MEDS: POTASSIUM Cl (KCl) 20 MEQ in 1/2 NS 1,000 ML IV SCH ×2 (14:04→21:00)
--- NOTE | 2016-12-13 16:08 | SOAPPROG ---
SOAP Progress Note Assessment/Plan: A/P: * Metastatic colon cancer: C1D10 FOLFIRI (second-line therapy). Poorly tolerating with early development of mucositis. Will need to discuss whether continue, dose reduce, etc. with Dr. Barth. * Mucositis: supportive care. Discussed with RN. * Neutropenia: due to chemo. If fever, broad-spectrum abx. 12/13/16 16:05 Subjective: Sleeping, I did not wake her. Reviewed sxs with RN. Continued mouth pain, but eating, drinking. O: VS reviewed. Gen: sleeping. Laboratory Tests 12/13/16 12/13/16 06:08 06:08 WBC 1.75 L Hgb 8.5 L Plt Count 62 L Absolute Neuts (auto) 0.32 L Sodium 142 Potassium 3.9 Chloride 112 H Carbon Dioxide 24 BUN 20 Creatinine 0.5 L Total Bilirubin 0.4 AST 22 ALT 28 Alkaline Phosphatase 111 Objective: Vital Signs Temp Pulse Resp BP Pulse Ox 36.9 C 70 16 100/40 L 96 12/13/16 15:08 12/13/16 15:08 12/13/16 15:08 12/13/16 15:08 12/13/16 15:08 Laboratory Results 12/13/16 06:08 12/13/16 06:08 12/12/16 12/13/16 12/14/16 05:59 05:59 05:59 Intake Total 3900 2462 Output Total 1999 1983 1200 Balance 3598 -267 -4636 ICD10 Worksheet Patient Problems: Problems Problem Status Onset Stomatitis Acute Colon cancer metastasized to liver Chronic
[2016-12-13] MEDS: MIRTAZAPINE 15 MG ODTAB PO SCH (20:50)
[2016-12-14 05:06] LABS: ADD DIFF? NO; ADD MORPH? NO; ADD SCAN? YES; ATYPICAL LYMPHOCYTE FLAG 0 (0-99); FRAGMENT RBC FLAG 20 (0-99); HEMATOCRIT 26.4 % (38.0-47.0); HEMOGLOBIN 8.7 g/dL (12.6-16.3); LEFT SHIFT FLG 30 (0-99); LIPEMIA HEMOLYSIS FLAG 80 (0-99); MEAN CELL HEMOGLOBIN 29.3 pg (27.9-34.1); MEAN CELL VOLUME 88.9 fL (81.5-99.8); MEAN PLATELET VOLUME 11.5 fL (8.7-11.7); PLATELET CLUMPS FLAG 0 (0-99); PLATELET COUNT 103 10^3/uL (150-400); RED BLOOD CELL COUNT 2.97 10^6/uL (4.18-5.33); RED CELL DISTRIBUTION WIDTH 16.2 % (11.5-15.2)
[2016-12-14 05:15] LABS: ALANINE AMINOTRANSFERASE 28 IU/L (9-52); ALBUMIN 2.4 g/dL (3.5-5.0); ALKALINE PHOSPHATASE 106 IU/L (38-126); ANION GAP 4 mEq/L (8-16); ASPARTATE AMINOTRANSFERASE 24 IU/L (14-46); BILIRUBIN,TOTAL 0.3 mg/dL (0.1-1.4); CALCIUM 8.2 mg/dL (8.5-10.4); CARBON DIOXIDE 26 mEq/l (22-31); CHLORIDE 106 mEq/L (97-110); CREATININE 0.5 mg/dL (0.6-1.0); GLOMERULAR FILTRATION RATE > 60; GLUCOSE 99 mg/dL (70-100); POTASSIUM 4.1 mEq/L (3.5-5.2); SODIUM 136 mEq/L (134-144); TOTAL PROTEIN 5.1 g/dL (6.3-8.2)
[2016-12-14 05:37] LABS: SCAN POSITIVE
[2016-12-14 05:47] LABS: PLATELET ESTIMATE DECREASED (ADEQ); SCHISTOCYTES 1+
[2016-12-14] MEDS: POTASSIUM Cl (KCl) 20 MEQ in 1/2 NS 1,000 ML IV SCH (06:14)
[2016-12-14] MEDS: GLUTAMINE (GLUTASOLVE) 1 EACH PKT PO SCH ×4 (07:43→20:46)
[2016-12-14] MEDS: PANTOPRAZOLE SODIUM 40 MG TAB PO SCH (07:43)
[2016-12-14] MEDS: morphINE SR 30 MG TAB PO SCH ×2 (09:27→20:47)
[2016-12-14] MEDS: ACYCLOVIR 400 MG TAB PO SCH ×3 (09:27→18:08)
[2016-12-14] MEDS: VISCOUS PO PRN ×2 (09:28→16:38)
[2016-12-14] MEDS: LIDOCAINE 2% PO PRN ×2 (09:28→16:38)
[2016-12-14] MEDS: morphINE 10 MG/0.5 ML UDSYR PO PRN ×2 (09:31→11:28)
[2016-12-14] MEDS: ENOXAPARIN 40 MG/0.4 ML SYR SC SCH (11:17)
[2016-12-14] MEDS: amLODIPine BESYLATE 5 MG TAB PO SCH (11:26)
[2016-12-14] MEDS: METOPROLOL TARTRATE 50 MG TAB PO SCH ×2 (11:27→20:45)
--- NOTE | 2016-12-14 11:36 | HOSPPROG ---
Hospitalist Progress Note Assessment/Plan: 61-year-old female admitted for chemotherapy for her stage IV colon cancer, now with poor oral intake in setting of severe mucositis, ?esophagitis and acute abdominal pain this am -abdominal pain - this is acute. DDx includes c diff vs typhlitis vs perf'd viscous vs chemo side effect vs obstruction though no vomiting and she is passing stool. c diff pending, will cover with po vanc and d/c if c diff neg KUB nl, no free air CT shows diffuse thickening of distal colon c/w colitis. this is not a classic distribution for typhlitis and pt is afebrile. will make npo for bowel rest tonight, trial clears when pain improved, start atbx for coverage for typhlitis if fevers -stage IV colon cancer undergoing FOLFIRI chemotherapy. FOLFIRI involves fluorouracil infusion over a 48 hour period. has completed chemotherapy -hypertension: good control mucusitis: poor pain control cont MS Contin, viscous lidocaine (pt prefers over magic mouthwash), add roxanol on acyclovir cont glutamine cont IVF's until po intake improved pancytopenia with neutropenia secondary to chemo: ANC 340, no fevers thrombocytopenia: hold lmwh -GERD: Stable, cont PPI -depression and anxiety stable -disequilibrium syndrome stable dispo: poor po intake and new abdominal pain precludes safe dc Subjective: Pt complains of severe abdominal pain. She thinks the coldness from her smoothie caused it. No vomiting. No fevers. +diarrhea this am. Still with severe oral pain and poor oral intake. Objective: Vital Signs Temp Pulse Resp BP Pulse Ox 36.9 C 73 16 102/63 93 12/14/16 08:16 12/14/16 08:16 12/14/16 08:16 12/14/16 08:16 12/14/16 08:16 Laboratory Results 12/14/16 04:50 12/14/16 04:50 12/13/16 12/14/16 12/15/16 05:59 05:59 05:59 Intake Total 2462 2848 Output Total 3400 3700 Balance -480 -684 - Physical Exam Constitutional: no apparent distress Eyes: PERRL Ears, Nose, Mouth, Throat: moist mucous membranes, oral ulcer Cardiovascular: regular rate and rhythym, no murmur, rub, or gallop Respiratory: no respiratory distress, clear to auscultation Gastrointestinal: normoactive bowel sounds, other (soft, nd, +diffuse TTP with some guarding, no rigidity) Skin: warm Musculoskeletal: full muscle strength Neurologic: AAOx3 Psychiatric: interacting appropriately ICD10 Worksheet Patient Problems: Problems Problem Status Onset Stomatitis Acute Colon cancer metastasized to liver Chronic
[2016-12-14] MEDS ORDERED: methylPREDNISolone SOD SUCC 125 MG/2 ML VIAL IVP ONE ×2 (11:38→12:21)
[2016-12-14] MEDS ORDERED: diphenhydrAMINE 25 MG CAP PO ONE (11:40)
[2016-12-14] MEDS ORDERED: IOPAMIDOL (ISOVUE-300) 100 ML BTL ONE (13:05)
[2016-12-14] MEDS: D5W 1/2 NS W/ 20 KCl/L 1,000 ML IV SCH (15:49)
[2016-12-14] MEDS ORDERED: VANCOMYCIN 125 MG/2.5 ML UDL PO SCH (16:00)
--- NOTE | 2016-12-14 16:24 | SOAPPROG ---
SOAP Progress Note Assessment/Plan: A/P: * Metastatic colon cancer: C1D11 FOLFIRI (second-line therapy). Poorly tolerating with early development of mucositis. Will need to discuss whether continue, dose reduce, etc. with Dr. Barth. * Mucositis: supportive care. Discussed with RN. * Abdominal pain: CT with ?bowel wall thickening (underdistention vs. colitis) , no dilation. Colitis due to 5-FU and irinotecan certainly possible, especially with her early development of mucositis and neutropenia. Neutropenic enterocolitis is also possible, but reassuring that she is AF. Monitor closely, and if fever or worsening, begin broad-spectrum abx (meropenem) . Check C dif. * Neutropenia: due to chemo. Begin G-CSF given concerns regarding AP. If fever, broad-spectrum abx. 12/14/16 16:21 Subjective: AP beginning today. Still with mucositis. Diarrhea earlier. O: VS reviewed, AF. Gen: uncomfortable. Lungs: CTA. Abd: hyperactive BS, no rebound/guarding, no signficant distension. Laboratory Tests 12/14/16 12/14/16 04:50 04:50 WBC 1.94 L Hgb 8.7 L Plt Count 103 L Absolute Seg Neuts 0.21 L Absolute Band Neuts 0.12 Sodium 136 Potassium 4.1 Chloride 106 Carbon Dioxide 26 Anion Gap 4 L BUN 18 Creatinine 0.5 L Glucose 99 Total Bilirubin 0.3 AST 24 ALT 28 Alkaline Phosphatase 106 Objective: Vital Signs Temp Pulse Resp BP Pulse Ox 35.7 C L 77 16 124/73 H 95 12/14/16 16:15 12/14/16 16:15 12/14/16 16:15 12/14/16 16:15 12/14/16 16:15 Laboratory Results 12/14/16 04:50 12/14/16 04:50 12/13/16 12/14/16 12/15/16 05:59 05:59 05:59 Intake Total 2642 0418 Output Total 0758 3700 300 Balance -938 -852 -300 ICD10 Worksheet Patient Problems: Problems Problem Status Onset Stomatitis Acute Colon cancer metastasized to liver Chronic
[2016-12-14] MEDS: FILGRASTIM-SNDZ 300 MCG/0.5 ML SYR SC SCH (16:38)
[2016-12-14] MEDS: MIRTAZAPINE 15 MG ODTAB PO SCH (20:45)
[2016-12-15] MEDS: D5W 1/2 NS W/ 20 KCl/L 1,000 ML IV SCH (05:39)
[2016-12-15] MEDS: GLUTAMINE (GLUTASOLVE) 1 EACH PKT PO SCH ×4 (05:40→22:01)
[2016-12-15 05:51] LABS: ADD DIFF? YES; ADD MORPH? NO; ADD SCAN? NO; ATYPICAL LYMPHOCYTE FLAG 0 (0-99); FRAGMENT RBC FLAG 0 (0-99); HEMATOCRIT 24.5 % (38.0-47.0); HEMOGLOBIN 8.1 g/dL (12.6-16.3); LEFT SHIFT FLG 60 (0-99); LIPEMIA HEMOLYSIS FLAG 80 (0-99); MEAN CELL HEMOGLOBIN 29.3 pg (27.9-34.1); MEAN CELL HEMOGLOBIN CONCENTR. 33.1 g/dL (32.4-36.7); MEAN CELL VOLUME 88.8 fL (81.5-99.8); PLATELET CLUMPS FLAG 10 (0-99); PLATELET COUNT 92 10^3/uL (150-400); RED BLOOD CELL COUNT 2.76 10^6/uL (4.18-5.33)
[2016-12-15 06:16] LABS: ALANINE AMINOTRANSFERASE 25 IU/L (9-52); ALBUMIN 2.5 g/dL (3.5-5.0); ALKALINE PHOSPHATASE 101 IU/L (38-126); ANION GAP 7 mEq/L (8-16); ASPARTATE AMINOTRANSFERASE 19 IU/L (14-46); BILIRUBIN,TOTAL 0.4 mg/dL (0.1-1.4); CALCIUM 8.5 mg/dL (8.5-10.4); CARBON DIOXIDE 23 mEq/l (22-31); CHLORIDE 108 mEq/L (97-110); CREATININE 0.4 mg/dL (0.6-1.0); GLOMERULAR FILTRATION RATE > 60; GLUCOSE 287 mg/dL (70-100); POTASSIUM 4.2 mEq/L (3.5-5.2); SODIUM 138 mEq/L (134-144); TOTAL PROTEIN 5.1 g/dL (6.3-8.2)
[2016-12-15 06:48] LABS: HYPOCHROMIA 1+; MICROCYTES 1+; POLYCHROMASIA 1+
[2016-12-15 06:49] LABS: PLATELET ESTIMATE DECREASED (ADEQ)
[2016-12-15] MEDS ORDERED: D50W 25 GM/50 ML SYR IVP PRN (08:14)
[2016-12-15] MEDS: ACYCLOVIR 400 MG TAB PO SCH ×3 (08:25→17:05)
[2016-12-15] MEDS: amLODIPine BESYLATE 5 MG TAB PO SCH (08:25)
[2016-12-15] MEDS: METOPROLOL TARTRATE 50 MG TAB PO SCH ×2 (08:25→20:50)
[2016-12-15] MEDS: morphINE SR 30 MG TAB PO SCH ×2 (08:25→20:49)
[2016-12-15] MEDS: PANTOPRAZOLE SODIUM 40 MG TAB PO SCH (08:26)
[2016-12-15] MEDS: LIDOCAINE 2% PO PRN ×2 (08:27→17:06)
[2016-12-15] MEDS: VISCOUS PO PRN ×2 (08:27→17:06)
[2016-12-15] MEDS: ENOXAPARIN 40 MG/0.4 ML SYR SC SCH (09:51)
[2016-12-15] MEDS ORDERED: INSULIN LISPRO 100 UNIT/ML SC SCH (12:00)
--- NOTE | 2016-12-15 13:22 | SOAPPROG ---
[facility] Progress Note Assessment/Plan: A/P: * Metastatic colon cancer: C1D12 FOLFIRI (second-line therapy). Poorly tolerating with early development of mucositis. Will need to discuss whether continue, dose reduce, etc. with Dr. Barth. * Mucositis: supportive care. * Abdominal pain: improved today. CT with ?bowel wall thickening ( underdistention vs. colitis), no dilation. Colitis due to 5-FU and irinotecan certainly possible, especially with her early development of mucositis and neutropenia. Neutropenic enterocolitis is also possible, but reassuring that she is AF. Monitor closely, and if fever or worsening, begin broad-spectrum abx (meropenem). Check C dif. * Neutropenia: due to chemo. Continue G-CSF. If fever, broad-spectrum abx. 12/15/16 13:21 Subjective: Feeling much better. Denies AP, feels heating pad has been helpful. O: VS reviewed. AF. Gen: A&O, smiling, NAD. Lungs: CTA. CV: no edema. Abd: soft, NT, normal BS. Laboratory Tests 12/15/16 12/15/16 05:40 05:40 WBC 0.78 L* Hgb 8.1 L Plt Count 92 L Absolute Seg Neuts 0.08 L Absolute Band Neuts 0.04 Sodium 138 Potassium 4.2 Chloride 108 Carbon Dioxide 23 Anion Gap 7 L BUN 10 Creatinine 0.4 L Glucose 287 H Total Bilirubin 0.4 AST 19 ALT 25 Alkaline Phosphatase 101 Objective: Vital Signs Temp Pulse Resp BP Pulse Ox 36.6 C 68 18 115/60 96 12/15/16 12:00 12/15/16 12:00 12/15/16 12:00 12/15/16 12:00 12/15/16 12:00 Laboratory Results 12/15/16 05:40 12/15/16 05:40 12/14/16 12/15/16 12/16/16 05:59 05:59 05:59 Intake Total 2848 1379 Output Total 3700 8306 976 Balance -854 -164 -504 ICD10 Worksheet Patient Problems: Problems Problem Status Onset Stomatitis Acute Colon cancer metastasized to liver Chronic
--- NOTE | 2016-12-15 13:22 | HOSPPROG ---
Hospitalist Progress Note Assessment/Plan: 61-year-old female admitted for chemotherapy for her stage IV colon cancer, now with poor oral intake in setting of severe mucositis, ?esophagitis and abdominal pain -abdominal pain - Improved, c diff negative. KUB nl, no free air CT shows diffuse thickening of distal colon c/w colitis. this is not a classic distribution for typhlitis and pt is afebrile. advance diet as tolerated. start atbx for coverage for typhlitis if fevers -stage IV colon cancer undergoing FOLFIRI chemotherapy. FOLFIRI involves fluorouracil infusion over a 48 hour period. has completed chemotherapy -hypertension: good control mucusitis: looks better today, pt worried abt pain management at home cont MS Contin, viscous lidocaine (pt prefers over magic mouthwash), add roxanol on acyclovir cont glutamine will dc ivf's, taking po better pancytopenia with neutropenia secondary to chemo: ANC 12, no fevers. G-csf per onc. thrombocytopenia: hold lmwh -GERD: Stable, cont PPI -depression and anxiety stable -disequilibrium syndrome stable dispo: poor po intake precludes safe dc Subjective: Pt feels better today. SHe is taking po better. Had some abdominal pain this am, but now resolved. No N/V. A couple of soft stools this am, none further today. No fevers. Objective: Vital Signs Temp Pulse Resp BP Pulse Ox 36.6 C 68 18 115/60 96 12/15/16 12:00 12/15/16 12:00 12/15/16 12:00 12/15/16 12:00 12/15/16 12:00 Laboratory Results 12/15/16 05:40 12/15/16 05:40 12/14/16 12/15/16 12/16/16 05:59 05:59 05:59 Intake Total 2848 1379 Output Total 3700 1750 800 Balance -852 -438 -386 - Physical Exam Constitutional: no apparent distress Eyes: PERRL Ears, Nose, Mouth, Throat: moist mucous membranes, other (oral ulcers significantly improved) Cardiovascular: regular rate and rhythym Respiratory: no respiratory distress, clear to auscultation Gastrointestinal: normoactive bowel sounds, soft, non-tender abdomen Skin: warm Musculoskeletal: full muscle strength Neurologic: AAOx3 Psychiatric: interacting appropriately ICD10 Worksheet Patient Problems: Problems Problem Status Onset Stomatitis Acute Colon cancer metastasized to liver Chronic
[2016-12-15] MEDS: 1/2 NS 1,000 ML IV SCH ×2 (13:51→20:54)
[2016-12-15] MEDS: FILGRASTIM-SNDZ 300 MCG/0.5 ML SYR SC SCH (14:38)
[2016-12-15] MEDS: morphINE 10 MG/0.5 ML UDSYR PO PRN ×2 (18:39→20:50)
[2016-12-15] MEDS: MIRTAZAPINE 15 MG ODTAB PO SCH (20:49)
[2016-12-16] MEDS: 1/2 NS 1,000 ML IV SCH (06:06)
[2016-12-16] MEDS: GLUTAMINE (GLUTASOLVE) 1 EACH PKT PO SCH ×4 (06:06→21:19)
[2016-12-16 06:36] LABS: ABSOLUTE NRBC COUNT 0.03 10^3/uL (0-0.01); ADD MORPH? YES; ADD SCAN? YES; ATYPICAL LYMPHOCYTE FLAG 0 (0-99); FRAGMENT RBC FLAG 0 (0-99); HEMATOCRIT 24.9 % (38.0-47.0); HEMOGLOBIN 8.1 g/dL (12.6-16.3); LEFT SHIFT FLG 20 (0-99); LIPEMIA HEMOLYSIS FLAG 80 (0-99); MEAN CELL HEMOGLOBIN CONCENTR. 32.5 g/dL (32.4-36.7); MEAN CELL VOLUME 89.2 fL (81.5-99.8); PLATELET CLUMPS FLAG 0 (0-99); PLATELET COUNT 124 10^3/uL (150-400); RED BLOOD CELL COUNT 2.79 10^6/uL (4.18-5.33)
[2016-12-16 06:41] LABS: NRBC-AUTO% 1.6 % (0.0-0.2)
[2016-12-16 06:54] LABS: ALANINE AMINOTRANSFERASE 28 IU/L (9-52); ALBUMIN 2.5 g/dL (3.5-5.0); ALKALINE PHOSPHATASE 97 IU/L (38-126); ANION GAP 7 mEq/L (8-16); ASPARTATE AMINOTRANSFERASE 19 IU/L (14-46); BILIRUBIN,TOTAL 0.5 mg/dL (0.1-1.4); CALCIUM 8.4 mg/dL (8.5-10.4); CARBON DIOXIDE 25 mEq/l (22-31); CHLORIDE 109 mEq/L (97-110); CREATININE 0.5 mg/dL (0.6-1.0); GLOMERULAR FILTRATION RATE > 60; GLUCOSE 84 mg/dL (70-100); POTASSIUM 3.7 mEq/L (3.5-5.2); SODIUM 141 mEq/L (134-144); TOTAL PROTEIN 4.9 g/dL (6.3-8.2)
[2016-12-16 07:16] LABS: ADD DIFF? YES; PLATELET ESTIMATE ADEQUATE (ADEQ); SCAN POSITIVE
[2016-12-16 07:34] LABS: HYPOCHROMIA 1+; MICROCYTES 1+; POLYCHROMASIA 1+
[2016-12-16] MEDS: morphINE SR 30 MG TAB PO SCH ×2 (08:39→21:18)
[2016-12-16] MEDS: METOPROLOL TARTRATE 50 MG TAB PO SCH ×2 (08:40→21:19)
[2016-12-16] MEDS: amLODIPine BESYLATE 5 MG TAB PO SCH (08:40)
[2016-12-16] MEDS: ENOXAPARIN 40 MG/0.4 ML SYR SC SCH ×2 (08:41→11:41)
[2016-12-16] MEDS: ACYCLOVIR 400 MG TAB PO SCH ×3 (08:41→18:31)
[2016-12-16] MEDS: PANTOPRAZOLE SODIUM 40 MG TAB PO SCH (08:41)
--- NOTE | 2016-12-16 10:52 | HOSPPROG ---
Hospitalist Progress Note Assessment/Plan: 61-year-old female admitted for chemotherapy for her stage IV colon cancer, now with poor oral intake in setting of severe mucositis, ?esophagitis and abdominal pain abdominal pain secondary to colitis - not a classic distribution for typhlitis and pt remains afebrile. still having diarrhea, c diff negative. KUB nl, no free air advance diet as tolerated start atbx for coverage for typhlitis if fevers stage IV colon cancer undergoing FOLFIRI chemotherapy. FOLFIRI involves fluorouracil infusion over a 48 hour period. has completed chemotherapy mucusitis: looks better today, pt worried abt pain management at home, stool poor oral intake cont MS Contin, viscous lidocaine (pt prefers over magic mouthwash), add roxanol on acyclovir cont glutamine cont ivf's until taking po better neutropenia secondary to chemo: ANC 210, no fevers. G-csf per onc. thrombocytopenia: improved hypertension: good control GERD: Stable, cont PPI depression and anxiety stable dysequilibrium syndrome dvt pplx: lovenox, watch plts dispo: poor po intake precludes safe dc Subjective: Pt feels a bit better. Still some abdominal discomfort and diarrhea. Tolerating po a little better. Oral ulcers are improving. She does not feel ready for dc yet. No fevers. Objective: Vital Signs Temp Pulse Resp BP Pulse Ox 36.5 C 52 L 14 118/62 98 12/16/16 08:10 12/16/16 08:10 12/16/16 08:10 12/16/16 08:10 12/16/16 08:10 Laboratory Results 12/16/16 06:10 12/16/16 06:10 12/15/16 12/16/16 12/17/16 05:59 05:59 05:59 Intake Total 1379 3521 Output Total 1750 2200 1000 Balance -371 1321 -1000 - Physical Exam Constitutional: no apparent distress Eyes: PERRL Ears, Nose, Mouth, Throat: moist mucous membranes, oral ulcer Cardiovascular: regular rate and rhythym Respiratory: no respiratory distress, clear to auscultation Gastrointestinal: normoactive bowel sounds, other (soft, nd, +mild TTP, no r/r/g ) Skin: warm Musculoskeletal: full muscle strength Neurologic: AAOx3 Psychiatric: interacting appropriately ICD10 Worksheet Patient Problems: Problems Problem Status Onset Stomatitis Acute Colon cancer metastasized to liver Chronic
--- NOTE | 2016-12-16 11:42 | SOAPPROG ---
SOAP Progress Note Assessment/Plan: Assessment: 1.) Stage IV colon cancer on the FOLFIRI regimen, with significant mucositis and resolving abd. pain. 2.) HTN 3.) GERD 4.) Discharge planning: Patient appears stable to be sent home perhaps tomorrow. Plan:1.) Home possibly, 12/17. 2.) [facility] appt. for follow up in the next 10 days. 3.) Discharge planning: Discussed concerns of patient and with language line via phone call. 12/16/16 11:41 Subjective: Abdominal pain is better and mouth pain also better. With use of lab aid, no new sx. and less diarrhea, and no emesis. Objective: Pt. in NAD. Her is at the bedside. HEENT- lower lip mucositis noted Neck- supple Chest- clear, CVS- RSR, no extra HS, ABD- soft, nondistended, NT, no mass, ascites or HSM. BS+ EXT- thin, skin intact and w/o edema. Labs as noted here: Hgb 8.1 WBC 1.83 on daily G-CSF. Vital Signs Temp Pulse Resp BP Pulse Ox 36.5 C 52 L 14 118/62 98 12/16/16 08:10 12/16/16 08:10 12/16/16 08:10 12/16/16 08:10 12/16/16 08:10 Laboratory Results 12/16/16 06:10 12/16/16 06:10 12/15/16 12/16/16 12/17/16 05:59 05:59 05:59 Intake Total 1376 0541 Output Total 1750 2200 1000 Balance -371 1321 -1000 ICD10 Worksheet Patient Problems: Problems Problem Status Onset Stomatitis Acute Colon cancer metastasized to liver Chronic
[2016-12-16] MEDS: FILGRASTIM-SNDZ 300 MCG/0.5 ML SYR SC SCH (15:25)
[2016-12-16] MEDS: morphINE 10 MG/0.5 ML UDSYR PO PRN ×2 (18:32→21:27)
[2016-12-16] MEDS: MIRTAZAPINE 15 MG ODTAB PO SCH (21:18)
[2016-12-16] MEDS: VISCOUS PO PRN (21:26)
[2016-12-16] MEDS: LIDOCAINE 2% PO PRN (21:26)
[2016-12-17] MEDS: 1/2 NS 1,000 ML IV SCH (05:45)
[2016-12-17] MEDS: PANTOPRAZOLE SODIUM 40 MG TAB PO SCH (06:02)
[2016-12-17 06:13] LABS: ABSOLUTE NRBC COUNT 0.19 10^3/uL (0-0.01); ADD DIFF? YES; ADD MORPH? YES; ATYPICAL LYMPHOCYTE FLAG 0 (0-99); FRAGMENT RBC FLAG 0 (0-99); HEMATOCRIT 26.3 % (38.0-47.0); HEMOGLOBIN 8.5 g/dL (12.6-16.3); LEFT SHIFT FLG 90 (0-99); LIPEMIA HEMOLYSIS FLAG 80 (0-99); MEAN CELL HEMOGLOBIN 28.7 pg (27.9-34.1); MEAN CELL HEMOGLOBIN CONCENTR. 32.3 g/dL (32.4-36.7); MEAN CELL VOLUME 88.9 fL (81.5-99.8); MEAN PLATELET VOLUME 10.6 fL (8.7-11.7); PLATELET CLUMPS FLAG 0 (0-99); PLATELET COUNT 113 10^3/uL (150-400); RED BLOOD CELL COUNT 2.96 10^6/uL (4.18-5.33)
[2016-12-17] MEDS: GLUTAMINE (GLUTASOLVE) 1 EACH PKT PO SCH ×4 (06:18→20:43)
[2016-12-17 06:24] LABS: ADD SCAN? NO; NRBC-AUTO% 7.7 % (0.0-0.2)
[2016-12-17 06:52] LABS: PLATELET ESTIMATE DECREASED (ADEQ)
[2016-12-17 06:53] LABS: HYPOCHROMIA 1+
[2016-12-17 06:54] LABS: POLYCHROMASIA 1+
[2016-12-17 07:01] LABS: ALANINE AMINOTRANSFERASE 34 IU/L (9-52); ALBUMIN 2.2 g/dL (3.5-5.0); ALKALINE PHOSPHATASE 116 IU/L (38-126); ANION GAP 4 mEq/L (8-16); ASPARTATE AMINOTRANSFERASE 23 IU/L (14-46); BILIRUBIN,TOTAL 0.5 mg/dL (0.1-1.4); CALCIUM 8.1 mg/dL (8.5-10.4); CARBON DIOXIDE 25 mEq/l (22-31); CHLORIDE 107 mEq/L (97-110); CREATININE 0.6 mg/dL (0.6-1.0); GLOMERULAR FILTRATION RATE > 60; GLUCOSE 75 mg/dL (70-100); POTASSIUM 3.5 mEq/L (3.5-5.2); SODIUM 136 mEq/L (134-144); TOTAL PROTEIN 4.7 g/dL (6.3-8.2)
[2016-12-17] MEDS: morphINE SR 30 MG TAB PO SCH ×2 (08:12→20:41)
[2016-12-17] MEDS: amLODIPine BESYLATE 5 MG TAB PO SCH (08:12)
[2016-12-17] MEDS: VISCOUS PO PRN ×4 (08:13→21:40)
[2016-12-17] MEDS: METOPROLOL TARTRATE 50 MG TAB PO SCH ×2 (08:13→20:43)
[2016-12-17] MEDS: LIDOCAINE 2% PO PRN ×4 (08:13→21:40)
[2016-12-17] MEDS: ACYCLOVIR 400 MG TAB PO SCH ×3 (08:13→17:42)
[2016-12-17] MEDS: ENOXAPARIN 40 MG/0.4 ML SYR SC SCH (08:17)
--- NOTE | 2016-12-17 11:17 | HOSPPROG ---
Hospitalist Progress Note Assessment/Plan: 61-year-old female admitted for chemotherapy for her stage IV colon cancer. Hospitalization has been complicated by poor oral intake due to severe mucositis , esophagitis, and abdominal pain. These symptoms are improving and today I will stop her IVF and determine if she able to maintain appropriate hydration and oral intake. BP was soft this morning and I've held Amlodipine This is my first encounter with this patient. The language line was used for translation. #abdominal pain secondary to colitis - not a classic distribution for typhlitis and pt remains afebrile. no further diarrhea, c diff negative. KUB nl, no free air advance diet as tolerated start atbx for coverage for typhlitis if fevers--No fevers at this time stage IV colon cancer undergoing FOLFIRI chemotherapy. FOLFIRI involves fluorouracil infusion over a 48 hour period. has completed chemotherapy mucusitis: looks better today cont MS Contin, viscous lidocaine (pt prefers over magic mouthwash), add roxanol on acyclovir cont glutamine neutropenia secondary to chemo: ANC 210, no fevers. G-csf per onc. thrombocytopenia: improved hypertension: soft pressures this morning. Will d/c Amlodipine GERD: Stable, cont PPI depression and anxiety stable dysequilibrium syndrome dvt pplx: lovenox, watch plts dispo: poor po intake precludes safe dc. IVF stopped today. Expect discharge 12/18 Subjective: Still on IVF. Oral intake is improving. Mouth pain is better. Mild abd pain. Objective: Vital Signs Temp Pulse Resp BP Pulse Ox 36.6 C 76 16 96/52 L 92 12/17/16 08:00 12/17/16 08:00 12/17/16 08:00 12/17/16 08:00 12/17/16 08:00 Laboratory Results 12/17/16 06:00 12/17/16 06:00 12/16/16 12/17/16 12/18/16 05:59 05:59 05:59 Intake Total 3521 3018 Output Total 2200 4400 Balance 1321 -1382 - Physical Exam Constitutional: no apparent distress, appears nourished Eyes: PERRL, EOMI Ears, Nose, Mouth, Throat: moist mucous membranes, No no oral mucosal ulcers ( oral mucosal ulcerations), No dry mucous membranes Cardiovascular: regular rate and rhythym, No JVD Respiratory: no respiratory distress Gastrointestinal: normoactive bowel sounds, tenderness (mild gen ttp) Skin: warm Neurologic: AAOx3 Psychiatric: interacting appropriately, not anxious ICD10 Worksheet Patient Problems: Problems Problem Status Onset Stomatitis Acute Colon cancer metastasized to liver Chronic
[2016-12-17] MEDS: FILGRASTIM-SNDZ 300 MCG/0.5 ML SYR SC SCH (14:12)
[2016-12-17] MEDS: MIRTAZAPINE 15 MG ODTAB PO SCH (20:41)
[2016-12-18] MEDS: GLUTAMINE (GLUTASOLVE) 1 EACH PKT PO SCH ×2 (06:36→13:14)
[2016-12-18] MEDS: PANTOPRAZOLE SODIUM 40 MG TAB PO SCH (06:49)
[2016-12-18] MEDS: METOPROLOL TARTRATE 50 MG TAB PO SCH (07:56)
[2016-12-18] MEDS: morphINE SR 30 MG TAB PO SCH (07:56)
[2016-12-18] MEDS: LIDOCAINE 2% PO PRN ×2 (07:58→13:09)
[2016-12-18] MEDS: VISCOUS PO PRN ×2 (07:58→13:09)
[2016-12-18] MEDS: ACYCLOVIR 400 MG TAB PO SCH ×2 (07:58→13:09)
[2016-12-18] MEDS: ENOXAPARIN 40 MG/0.4 ML SYR SC SCH (08:00)
[2016-12-18 10:06] VITALS: BP 108/58; PULSE 80; RESP 18; TEMP 97; O2SAT 94
--- NOTE | 2016-12-18 11:53 | SOAPPROG ---
SOAP Progress Note Assessment/Plan: Assessment: 1.) Stage IV colon cancer on the FOLFIRI regimen, with significant mucositis and resolving abd. pain. 2.) HTN 3.) GERD 4.) Discharge planning: Patient appears stable to be sent home as of today. Will have PICC line discontinued. With use of language line, she and her feel that she is ready for discharge to home today. Plan:1.) Home today, 12/18/16. 2[facility]. 3.) Discharge planning: Discussed concerns of patient and with language line via phone call. 12/18/16 11:53 Subjective: With use of the Language line, she reports no new sx. and no pain or GI problems. She feels ready to go home today. Objective: VSS, Afebrile, as noted here. HEENT- healing oral lesions. Anicteric Neck- supple Chest- clear CVS- RSR, no extra HS ABD- soft, NT, no mass. BS+ EXT- R Picc line in place and NT. LE are w/o edema. Skin intact. Labs as noted here: Vital Signs Temp Pulse Resp BP Pulse Ox 36.1 C 80 18 108/58 L 94 12/18/16 08:00 12/18/16 08:00 12/18/16 08:00 12/18/16 08:00 12/18/16 08:00 Laboratory Results 12/17/16 06:00 12/17/16 06:00 12/17/16 12/18/16 12/19/16 05:59 05:59 05:59 Intake Total 3018 800 Output Total 2230 1800 Balance -1382 -1000 ICD10 Worksheet Patient Problems: Problems Problem Status Onset Stomatitis Acute Colon cancer metastasized to liver Chronic
--- NOTE | 2016-12-18 13:54 | GDS ---
[f rep st] DISCHARGE SUMMARY DISCHARGE DIAGNOSES: 1. Stage IV colon cancer on FOLFIRI chemotherapy. 2. Mucositis and resolving abdominal pain due to above. 3. Hypertension. 4. Gastroesophageal reflux disease. CONSULTANTS: [facility]. HOSPITAL COURSE AND STAY BY PROBLEM: Metastatic colon cancer: The patient was admitted to the hosp [facility] for FOLFIRI chemotherapy. Initial plan was for her to discharge 48 hours. After 5-FU infusion was complete. However, her hospital course was complicated by severe mucositis and abdominal pain. Over the past few days, the patient's mucositis has not improved as well as her overall strength. O n day of discharge, she was seen both by myself and by Dr. Saenz from Oncology, who thought it was reasonable for her to be discharged home. The Language Line was used for translation. The patient states that she is eating and feels well enough to go home. Her abdominal pain is improved. PHYSICAL EXAMINATION: VITAL SIGNS: On day of discharge, blood pressure 108/58, pulse of 80, respir atory rate 18, O2 sat 94% on room air. GENERAL: No acute distress. HEART: S1, S2. LUNGS: Clear . ABDOMEN: Soft. EXTREMITIES: No edema. DISCHARGE MEDICATIONS: Please refer to discharge medication reconciliation in [facility] for details. DISCHARGE INSTRUCTIONS: The patient will be discharged home where she should follow up with [facility] in 10 days to discuss treatment. Greater than 30 minutes were spent on the discharge of this patient. /[id number]/MODL
--- NOTE | 2016-12-18 15:38 | PDIAF ---
- Diagnosis Diagnosis: metastatic colon cancer Code Status: Full Code - Medication Management Discharge Medications: Medications to Continue on Transfer Loperamide HCl [Loperamide] 2 mg PO DAILY PRN 11/09/15 [Last Taken Unknown] Ondansetron Odt [Zofran Odt 4 mg (*)] 8 mg PO Q8 PRN 11/09/15 [Last Taken ] Sennosides/Docusate Sodium [Senokot-S] 1 tab PO BID PRN 11/09/15 [Last Taken 04/04 08:00] Metoprolol Tartrate [Lopressor 50 mg (*)] 50 mg PO BID 11/26/15 [Last Taken 08:00] Acyclovir [Zovirax 400 mg (*)] 400 mg PO TIDMEAL 01/01/16 [Last Taken 06/10/16 12:00] Ibuprofen [Motrin (*)] 600 mg PO Q8 PRN 01/01/16 [Last Taken Unknown] Benzocaine/Menthol 15/4 [Cepacol Lozenge] 1 ea PO Q2 PRN 04/03/16 [Last Taken Unknown] Mirtazapine [Remeron soltab 15 mg (*)] 7.5 mg PO HS 04/03/16 [Last Taken ] amLODIPine BESYLATE [Norvasc 5 mg (*)] 5 mg PO DAILY 04/03/16 [Last Taken ] oxyCODONE IR [Oxycodone Ir (*)] 5 mg PO Q4 PRN 04/03/16 [Last Taken Unknown] Maalox/Benadryl/Lidocaine Suspension 5 ml MM Q2 PRN 12/04/16 [Last Taken Unknown ] Omeprazole 40 mg PO DAILYAC 12/04/16 [Last Taken Unknown] Prochlorperazine Maleate [Compazine 10mg (*)] 10 mg PO Q6 PRN 12/04/16 [Last Taken Unknown] Lidocaine 2% Viscous 10 ml PO Q4 PRN #100 ml 12/08/16 [Last Taken Unknown] morphINE SR [MS Contin/Oramorph SR 30 mg (*)] 30 mg PO BID #14 tab 12/18/16 [ Last Taken Unknown] Discharge Medications: Refer to the Discharge Home Medication list for PRN reason. - Orders Services needed: Home Group Home Care Face to Face: I certify that this patient was under my care and that I had the required [id number] encounter meeting the encounter requirements on the discharge day. My findings support the fact that the patient is homebound as defined in CMS Chapter 7 Medicare Benefits Manual 30.1.1, The condition of the patient is such that there exists a normal inability to leave home and consequently, leaving home would require a considerable and taxing effort. Diet Recommendation: no restrictions on diet Diet Texture: Regular Texture Diet - Follow Up Care Current Providers and Referrals: Marcus Batres JR, MD [Primary Care Provider] -
== END 2016-12-18 15:52 | disposition home or self-care (01) | DRG 847 ==
LOC: F1N 11:41 → UNDODISIN 12-17 13:41
PROVIDERS: ADMIT Internal Medicine Pulmonary Disease; ATTEND Internal Medicine Pulmonary Disease
PROC: 3E04305 Introduction of Other Antineoplastic into Central Vein, Percutaneous Approach (ICD-10-PCS; principal; 2016-12-04)
PROC: 02HV33Z Insertion of Infusion Device into Superior Vena Cava, Percutaneous Approach (ICD-10-PCS; 2016-12-04)
DX: Z51.11 Encounter for antineoplastic chemotherapy (principal); C18.9 Malignant neoplasm of colon, unspecified; K12.30 Oral mucositis (ulcerative), unspecified; I10 Essential (primary) hypertension; K21.9 Gastro-esophageal reflux disease without esophagitis
CPT/HCPCS: 97165-GO; C1751; J0640; J1200; J1650; J1815; J2405; J2469; J9190; J9206; Q5101-ZA; Q9967

== ENCOUNTER 2017-01-07 14:41 | Inpatient (IN) | payer MEDICAID ==
[2017-01-07] MEDS ORDERED: PROMETHAZINE HCL 25 MG/ML INJ ONE (15:14)
[2017-01-07] MEDS ORDERED: ONDANSETRON 4 MG/2 ML VIAL ONE (15:14)
[2017-01-07] MEDS ORDERED: ACETAMINOPHEN 325 MG TAB PO PRN (15:20)
[2017-01-07] MEDS ORDERED: HYDROmorphONE/DILAUDID 1 MG/ML SYR IVP PRN (15:20)
[2017-01-07] MEDS ORDERED: NS 1,000 ML IV ONE (15:20)
[2017-01-07] MEDS: PROMETHAZINE HCL 25 MG/ML INJ IVP PRN (15:21)
[2017-01-07] MEDS: ONDANSETRON 4 MG/2 ML VIAL IVP PRN ×2 (15:21→20:26)
[2017-01-07] MEDS: LIDOCAINE 2% VISCOUS 15 ML UDCUP PO PRN ×3 (15:49→20:26)
[2017-01-07] MEDS ORDERED: IBUPROFEN 600 MG TAB PO PRN (16:01)
[2017-01-07] MEDS ORDERED: MAALOX MM PRN (16:01)
[2017-01-07] MEDS ORDERED: BENADRYL MM PRN (16:01)
[2017-01-07] MEDS ORDERED: LIDOCAINE MM PRN (16:01)
--- NOTE | 2017-01-07 16:34 | GHP ---
[f rep st] HISTORY AND PHYSICAL DATE OF ADMISSION: 01/07/2017 CHIEF COMPLAINT: Nausea, vomiting, diarrhea after chemotherapy. HISTORY OF PRESENT ILLNESS: This is a 61-year-old female who has a history of stage IV colon cancer . She is undergoing chemotherapy for this. The patient was interviewed with a phone electronic warfare officer. This is a 61-year-old female who has a history of metastatic colon cancer, is undergoing chemotherap y. She had chemotherapy 1 week ago, and developed progressive nausea, vomiting, diarrhea and mucosi tis. This is consistent with previous side effects of chemotherapy that she has had in the past. S he is unable to tolerate oral feedings or liquids. She denies any fevers or chills. She does admit to abdominal pain, especially in the more epigastric area. REVIEW OF SYSTEMS: A 10-point review of systems was obtained. Other than stated above, is negative . PAST MEDICAL HISTORY: Hypertension, GERD. MEDICATIONS: Reviewed. SOCIAL HISTORY: Is from [facility], and speaks Farsi. No smoking or alcohol. FAMILY HISTORY: Reviewed and noncontributory. PHYSICAL EXAM: GENERAL: Patient is cachectic, is in some mild distress secondary to nausea. HEENT : Nonicteric sclerae. Extraocular movements intact. Dry mucous membranes. There is an ulceration on the left lateral tongue, as well as ulcerations behind her lower lip. NECK: Supple. No thyrom egaly. LUNGS: Good effort. Clear to auscultation bilaterally. CARDIOVASCULAR: Regular rate and rhythm. No murmurs or gallops. ABDOMEN: Positive bowel sounds. Soft, some epigastric tenderness. No rebound or guarding. EXTREMITIES: No clubbing, cyanosis, or edema. SKIN: Without rash. War m, dry, intact. NEUROLOGIC: Alert and oriented x3. Moving all 4 extremities equally. PSYCHIATRIC : Normal mood and affect. LABS: White count 4, hemoglobin 10. Chemistry is fairly normal, with creatinine 0.9, although her baseline is 0.5. ASSESSMENT: This is a 61-year-old female with a history of metastatic colon cancer, presenting with nausea, vomiting, mucositis, diarrhea post chemotherapy. PLAN: 1. Colon cancer, status post chemo. Oncology will be consulted in the morning. 2. Dehydration. We will give IV fluids. 3. Persistent nausea and vomiting. Use antiemetics. 4. Diarrhea. We will check a C. difficile, although the last C. difficile was negative prior to gi ving antidiarrheal agents. 5. Mucositis. We will treat with lidocaine and acyclovir. 6. Hypertension. Continue medications. 7. Admission. Patient will be admitted under full admission status. Case is discussed with Alana Metzger, Nurse Practitioner. Old records reviewed and summarized in the HPI. /[id number]/MODL
[2017-01-07] MEDS: NS 1,000 ML IV SCH (16:48)
[2017-01-07] MEDS: ACYCLOVIR 400 MG TAB PO SCH (17:54)
[2017-01-07] MEDS: METOPROLOL TARTRATE 50 MG TAB PO SCH (20:24)
[2017-01-07] MEDS: morphINE SR 30 MG TAB PO SCH (20:25)
[2017-01-07] MEDS ORDERED: ACYCLOVIR 400 MG TAB PO SCH (21:00)
[2017-01-08] MEDS: NS 1,000 ML IV SCH ×3 (02:50→23:50)
[2017-01-08 04:53] LABS: % IMMATURE GRANULYOCYTES 0.5 % (0.0-1.1); ABSOLUTE IMMATURE GRANULOCYTES 0.02 10^3/uL (0.00-0.10); ADD DIFF? NO; ADD MORPH? NO; ADD SCAN? YES; ATYPICAL LYMPHOCYTE FLAG 0 (0-99); FRAGMENT RBC FLAG 20 (0-99); HEMATOCRIT 27.4 % (38.0-47.0); LIPEMIA HEMOLYSIS FLAG 80 (0-99); MEAN CELL HEMOGLOBIN 28.8 pg (27.9-34.1); MEAN CELL HEMOGLOBIN CONCENTR. 32.8 g/dL (32.4-36.7); MEAN CELL VOLUME 87.8 fL (81.5-99.8); MEAN PLATELET VOLUME 9.8 fL (8.7-11.7); PLATELET CLUMPS FLAG 0 (0-99); PLATELET COUNT 173 10^3/uL (150-400); RED BLOOD CELL COUNT 3.12 10^6/uL (4.18-5.33); RED CELL DISTRIBUTION WIDTH 16.7 % (11.5-15.2)
[2017-01-08 04:59] LABS: ALANINE AMINOTRANSFERASE 26 IU/L (9-52); ALBUMIN 2.5 g/dL (3.5-5.0); ALKALINE PHOSPHATASE 122 IU/L (38-126); ANION GAP 8 mEq/L (8-16); ASPARTATE AMINOTRANSFERASE 24 IU/L (14-46); BILIRUBIN,TOTAL 0.6 mg/dL (0.1-1.4); CALCIUM 8.2 mg/dL (8.5-10.4); CARBON DIOXIDE 18 mEq/l (22-31); CHLORIDE 111 mEq/L (97-110); CREATININE 0.7 mg/dL (0.6-1.0); GLOMERULAR FILTRATION RATE > 60; GLUCOSE 70 mg/dL (70-100); MAGNESIUM 1.7 mg/dL (1.6-2.3); POTASSIUM 3.3 mEq/L (3.5-5.2); SODIUM 137 mEq/L (134-144)
[2017-01-08 05:07] LABS: LEFT SHIFT FLG 100 (0-99)
[2017-01-08 05:25] LABS: SCAN POSITIVE
[2017-01-08 05:32] LABS: PLATELET ESTIMATE ADEQUATE (ADEQ)
[2017-01-08] MEDS ORDERED: NON-FORMULARY NEW DRUG (Omeprazole [Omeprazole] 40 MG) PO SCH (07:30)
[2017-01-08 07:55] LABS: CLOSTRIDIUM DIFFICILE DNA POSITIVE (NEGATIVE)
[2017-01-08 07:56] LABS: PRINT OR CALL CRITICALS TECH CALL
[2017-01-08] MEDS ORDERED: PROTOCOL MAGNESIUM 1 DOSE IV PRN (08:19)
[2017-01-08] MEDS ORDERED: PROTOCOL CALCIUM 1 DOSE IV PRN (08:19)
[2017-01-08] MEDS ORDERED: PROTOCOL POTASSIUM 1 DOSE MISC PRN (08:19)
[2017-01-08] MEDS ORDERED: NON-FORMULARY NEW DRUG (Ranitidine Hcl [Acid Reducer] 150 MG) PO PRN (08:19)
[2017-01-08] MEDS ORDERED: PROTOCOL K PHOSPHATE 1 DOSE IV PRN (08:19)
[2017-01-08] MEDS: amLODIPine BESYLATE 5 MG TAB PO SCH (08:33)
[2017-01-08] MEDS: LIDOCAINE 2% VISCOUS 15 ML UDCUP PO PRN ×5 (08:33→20:36)
[2017-01-08] MEDS: PANTOPRAZOLE SODIUM 40 MG TAB PO SCH (08:33)
[2017-01-08] MEDS: METOPROLOL TARTRATE 50 MG TAB PO SCH ×2 (08:33→20:34)
[2017-01-08] MEDS: ACYCLOVIR 400 MG TAB PO SCH ×3 (08:33→17:08)
[2017-01-08] MEDS: morphINE SR 30 MG TAB PO SCH ×2 (08:34→20:28)
[2017-01-08] MEDS: ENOXAPARIN 30 MG/0.3 ML SYR SC SCH (08:34)
[2017-01-08] MEDS ORDERED: CAPECITABINE 500 MG TAB PO SCH ×2 (09:00→11:00)
[2017-01-08] MEDS ORDERED: MAGNESIUM SULF 1 GM/DEXTROSE 100 ML IV ONE (10:30)
[2017-01-08] MEDS ORDERED: POTASSIUM CL 10 MEQ TAB PO ONE ×2 (10:30→20:13)
[2017-01-08] MEDS: VANCOMYCIN 125 MG/2.5 ML UDL PO SCH ×4 (10:59→20:29)
[2017-01-08 12:40] LABS: IONIZED CALCIUM 1.14 MMOL/L (1.12-1.30)
[2017-01-08 13:04] LABS: MAGNESIUM 2.4 mg/dL (1.6-2.3); POTASSIUM 3.5 mEq/L (3.5-5.2)
--- NOTE | 2017-01-08 14:25 | HOSPPROG ---
Hospitalist Progress Note Assessment/Plan: 61 yo F w/hx of stage 4 colon cancer on chemotherapy pw n/v/d and found to have c diff # c diff: started on oral vanco, monitoring stool output, HD stable # n/v: in setting of recent chemotherapy and likely related to same # hypovolemia/poor po intake: improved with IVF, repleting electrolytes as needed # mucositis: sxs stable on lidocaine/acyclovir # htn: continue op meds # anemia: 22/ chemo stable Patient new to my care. Old records reviewed and summarized as above. Care plan reviewed with CM, interviewed with help of Gogo retina subspecialist on phone Subjective: no significant overnight events, patient currently feeling a bit better Objective: Vital Signs Temp Pulse Resp BP Pulse Ox 36.6 C 63 16 123/60 H 96 01/08/17 13:21 01/08/17 13:21 01/08/17 13:21 01/08/17 13:21 01/08/17 13:21 Laboratory Results 01/08/17 04:18 01/08/17 12:31 01/07/17 01/08/17 01/09/17 05:59 05:59 05:59 Intake Total 2238 Balance 2238 awake alert anicteric op clear rrr no mrg cta b soft nt nd no cce warm dry well perfused oriented appropriate - Time Spent With Patient Time Spent with Patient: greater than 35 minutes Time Spent with Patient: Greater than 35 minutes spent on this patients care, greater than 50% of time spent counseling, educating, and coordinating care regarding the above mentioned plan. ICD10 Worksheet Patient Problems: Problems Problem Status Onset C. difficile diarrhea Acute ~01/07/17 Stomatitis Acute Colon cancer metastasized to liver Chronic
[2017-01-08 18:49] LABS: POTASSIUM 3.6 mEq/L (3.5-5.2)
--- NOTE | 2017-01-08 18:59 | GCON ---
[f rep st] CONSULTATION ONCOLOGY CONSULTATION REASON FOR CONSULTATION: Diarrhea and metastatic colon cancer. HISTORY OF PRESENT ILLNESS: The patient is a very pleasant 61-year-old female, who is from [facility]. She was diagnosed with metastatic colon cancer to the liver in June of 2015. She initially was treated with Folfox from August 2015 to March 2016, with a good partial response and then continued on maintenance therapy with 5-FU capecitabine. She recently had progressive disease in November and was started on XELIRI. She received her 2nd cycle of XELIRI on December 30. She has been taking Xeloda with a 2-week-on/1- week-off schedule. With the 1st cycle, she was taking a 1000 mg b.i.d. but developed mucositis and more recently had the dose reduced to 500 mg in the a.m. and 1000 mg in the p.m. She has had mucositis with this regimen along with a marked increase in diarrhea. She denies any fever. She has lost about 10 pounds but much of that is attributed to dehydration. She was admitted for hydration and further treatment for the mucositis and diarrhea. PAST MEDICAL HISTORY: Unremarkable. SOCIAL HISTORY: She has a sister, who lives in [facility]. Her is local but they do not have any children. She has step children. She speaks Farsi. She does not smoke or drink alcohol. FAMILY HISTORY: Noncontributory. REVIEW OF SYSTEMS: 10-point review of systems is negative other than HPI. PHYSICAL EXAM: GENERALLY: She is cachectic-appearing and appears fatigued. VITAL SIGNS: Blood pressure 126/65, heart rate 63, respires 14. She is afebrile. HEENT: Evidence of mucositis, more prominent on the left tongue. NECK: Supple. LUNGS: Clear to auscultation. ABDOMEN: Soft, with hyperactive bowel sounds. Nontender other than some mild discomfort in the mid epigastric area. LABORATORY DATA: White blood cell count 3.85, hematocrit 27.4, platelets 173. Comprehensive metabolic panel unremarkable other than potassium of 3.3, albumin 2.5. IMPRESSION: This is a 61-year-old [facility] female, who has recently been found to have progressive metastatic colon cancer and has started on a new therapy with Xeloda and oxaliplatin. She is admitted with toxicities related to the chemotherapy, including mucositis and diarrhea. In addition, she has been found to be C difficile positive, which is obviously contributing to the diarrhea as well. Will hold the Xeloda and the patient has been started on oral vancomycin. She is receiving mouth care with viscous lidocaine for the mucositis. She is not febrile and not neutropenic. We will continue to follow along with you. /[id number]/MODL MTDD
[2017-01-09 04:55] LABS: IONIZED CALCIUM 1.13 MMOL/L (1.12-1.30)
[2017-01-09 05:13] LABS: ANION GAP 6 mEq/L (8-16); CARBON DIOXIDE 18 mEq/l (22-31); CHLORIDE 109 mEq/L (97-110); CREATININE 0.6 mg/dL (0.6-1.0); GLOMERULAR FILTRATION RATE > 60; GLUCOSE 79 mg/dL (70-100); MAGNESIUM 1.7 mg/dL (1.6-2.3); POTASSIUM 3.6 mEq/L (3.5-5.2); SODIUM 133 mEq/L (134-144)
[2017-01-09 05:21] LABS: % IMMATURE GRANULYOCYTES 0.2 % (0.0-1.1); ABSOLUTE IMMATURE GRANULOCYTES 0.01 10^3/uL (0.00-0.10); ADD DIFF? NO; ADD MORPH? NO; ADD SCAN? NO; ATYPICAL LYMPHOCYTE FLAG 0 (0-99); FRAGMENT RBC FLAG 20 (0-99); HEMATOCRIT 26.6 % (38.0-47.0); HEMOGLOBIN 8.8 g/dL (12.6-16.3); LEFT SHIFT FLG 90 (0-99); LIPEMIA HEMOLYSIS FLAG 80 (0-99); MEAN CELL HEMOGLOBIN 28.7 pg (27.9-34.1); MEAN CELL HEMOGLOBIN CONCENTR. 33.1 g/dL (32.4-36.7); MEAN CELL VOLUME 86.6 fL (81.5-99.8); MEAN PLATELET VOLUME 10.5 fL (8.7-11.7); PLATELET CLUMPS FLAG 0 (0-99); PLATELET COUNT 166 10^3/uL (150-400); RED BLOOD CELL COUNT 3.07 10^6/uL (4.18-5.33); RED CELL DISTRIBUTION WIDTH 16.8 % (11.5-15.2)
[2017-01-09] MEDS: VANCOMYCIN 125 MG/2.5 ML UDL PO SCH ×4 (06:06→21:13)
[2017-01-09] MEDS: ACYCLOVIR 400 MG TAB PO SCH ×3 (09:08→17:16)
[2017-01-09] MEDS: morphINE SR 30 MG TAB PO SCH ×2 (09:08→21:13)
[2017-01-09] MEDS: amLODIPine BESYLATE 5 MG TAB PO SCH (09:08)
[2017-01-09] MEDS: LIDOCAINE 2% VISCOUS 15 ML UDCUP PO PRN (09:08)
[2017-01-09] MEDS: METOPROLOL TARTRATE 50 MG TAB PO SCH ×2 (09:08→21:13)
[2017-01-09] MEDS: PANTOPRAZOLE SODIUM 40 MG TAB PO SCH (09:08)
[2017-01-09] MEDS: ENOXAPARIN 30 MG/0.3 ML SYR SC SCH (09:09)
[2017-01-09] MEDS: NS 1,000 ML IV SCH ×2 (09:49→21:09)
[2017-01-09] MEDS ORDERED: POTASSIUM CL 10 MEQ TAB PO ONE ×2 (10:00→22:18)
[2017-01-09] MEDS ORDERED: MAGNESIUM SULF 1 GM/DEXTROSE 100 ML IV ONE (10:00)
[2017-01-09] MEDS: ONDANSETRON 4 MG/2 ML VIAL IVP PRN ×2 (10:30→15:59)
[2017-01-09] MEDS: FAMOTIDINE 20 MG TAB PO PRN (10:52)
[2017-01-09] MEDS: HYDROCODONE/APAP 5/325 TAB PO PRN ×2 (10:52→13:05)
--- NOTE | 2017-01-09 13:21 | SOAPPROG ---
SOAP Progress Note Assessment/Plan: A/P: * Diarrhea: Cdif and chemo. On po vanc. * Mucositis: chemo. Mouth care, pain meds. * Metastatic colon cancer, C1D11 Xeloda/Irinotecan. Xeloda on hold due to above. 01/09/17 13:18 Subjective: AP, diarrhea. Mouth pain manageable. O: VSS, AF. Gen: thin, chronically-ill appearing. CV: no edema. Lungs: breathing comfortably. Abd: +BS, no R/G. Laboratory Tests 01/09/17 01/09/17 04:34 04:34 WBC 4.34 Hgb 8.8 L Hct 26.6 L Plt Count 166 Sodium 133 L Potassium 3.6 Chloride 109 Carbon Dioxide 18 L BUN 3 L Creatinine 0.6 Glucose 79 Objective: Vital Signs Temp Pulse Resp BP Pulse Ox 36.4 C 74 14 134/74 H 96 01/09/17 09:18 01/09/17 09:18 01/09/17 09:18 01/09/17 09:18 01/09/17 09:18 Laboratory Results 01/09/17 04:34 01/09/17 04:34 01/08/17 01/09/17 01/10/17 05:59 05:59 05:59 Intake Total 5436 6963 Output Total 0301 Balance 2238 -2311 ICD10 Worksheet Patient Problems: Problems Problem Status Onset C. difficile diarrhea Acute ~01/07/17 Stomatitis Acute Colon cancer metastasized to liver Chronic
--- NOTE | 2017-01-09 13:28 | HOSPPROG ---
Hospitalist Progress Note Assessment/Plan: 61 yo F w/hx of stage 4 colon cancer on chemotherapy pw n/v/d and found to have c diff # c diff: started on oral vanco, decreasing bm per her report but still having diarrhea and abdominal cramping # n/v: in setting of recent chemotherapy and likely related to same # hypovolemia/poor po intake: improved with IVF, repleting electrolytes as needed # mucositis: sxs stable on lidocaine/acyclovir # htn: continue op meds # anemia: 22/ chemo stable Care plan reviewed with CM, interviewed with help of Gogo inspector final assembly electrical on phone Subjective: no significant overnight events, patient notes continued diarrhea but feels it is decreasing, she is eating some Objective: Vital Signs Temp Pulse Resp BP Pulse Ox 36.4 C 74 14 134/74 H 96 01/09/17 09:18 01/09/17 09:18 01/09/17 09:18 01/09/17 09:18 01/09/17 09:18 Laboratory Results 01/09/17 04:34 01/09/17 04:34 01/08/17 01/09/17 01/10/17 05:59 05:59 05:59 Intake Total 2238 1636 Output Total 3950 Balance 2238 -2314 awake alert anicteric op clear rrr no mrg cta b soft +bs diffuse ttp no cce warm dry well perfused oriented appropriate - Time Spent With Patient Time Spent with Patient: greater than 35 minutes Time Spent with Patient: Greater than 35 minutes spent on this patients care, greater than 50% of time spent counseling, educating, and coordinating care regarding the above mentioned plan. ICD10 Worksheet Patient Problems: Problems Problem Status Onset C. difficile diarrhea Acute ~01/07/17 Stomatitis Acute Colon cancer metastasized to liver Chronic
[2017-01-09] MEDS: MBX SOLN 30 ML BOTTLE PO PRN (15:24)
[2017-01-09] MEDS: PROMETHAZINE HCL 25 MG/ML INJ IVP PRN (15:57)
[2017-01-09 19:35] LABS: POTASSIUM 3.6 mEq/L (3.5-5.2)
[2017-01-10 04:57] LABS: IONIZED CALCIUM 1.13 MMOL/L (1.12-1.30)
[2017-01-10 05:19] LABS: MAGNESIUM 1.7 mg/dL (1.6-2.3); POTASSIUM 3.6 mEq/L (3.5-5.2)
[2017-01-10] MEDS: VANCOMYCIN 125 MG/2.5 ML UDL PO SCH ×4 (06:33→22:14)
[2017-01-10] MEDS ORDERED: MAGNESIUM SULF 1 GM/DEXTROSE 100 ML IV ONE (07:44)
[2017-01-10] MEDS: PANTOPRAZOLE SODIUM 40 MG TAB PO SCH (08:28)
[2017-01-10] MEDS: morphINE SR 30 MG TAB PO SCH ×2 (08:29→22:14)
[2017-01-10] MEDS: amLODIPine BESYLATE 5 MG TAB PO SCH (08:29)
[2017-01-10] MEDS: ACYCLOVIR 400 MG TAB PO SCH ×3 (08:29→18:33)
[2017-01-10] MEDS: METOPROLOL TARTRATE 50 MG TAB PO SCH ×2 (08:29→22:13)
[2017-01-10] MEDS ORDERED: POTASSIUM Cl (KCl) 50 ML IV SCH (08:52)
[2017-01-10] MEDS: POTASSIUM Cl (KCl) 100 ML IV SCH ×3 (09:56→12:06)
--- NOTE | 2017-01-10 12:08 | SOAPPROG ---
SOAP Progress Note Assessment/Plan: Assessment: 1. metastatic colon cancer 2. diarrhea and mucositis due to XELIRI chemo 3. C dif diarrhea Plan: - continue PO vanco - continue other supportive care - will need to discuss dose modification w/ dr frias in the outpatient setting for subsequent cycles 01/10/17 12:07 Subjective: feeling better. still having diarrhea Objective: exam thin, NAD Lungs CTAB CV RRR no MGR Abd: +BS NT ND ext no edema Vital Signs Temp Pulse Resp BP Pulse Ox 36.3 C 69 16 130/60 H 95 01/10/17 09:25 01/10/17 09:25 01/10/17 09:25 01/10/17 09:25 01/10/17 09:25 Laboratory Results 01/09/17 04:34 01/10/17 04:25 01/09/17 01/10/17 01/11/17 05:59 05:59 05:59 Intake Total 1636 1606 Output Total 3950 Balance -2314 1606 ICD10 Worksheet Patient Problems: Problems Problem Status Onset C. difficile diarrhea Acute ~01/07/17 Stomatitis Acute Colon cancer metastasized to liver Chronic
[2017-01-10] MEDS: ONDANSETRON DISINTEGRATING 4 MG TAB PO PRN ×2 (13:46→22:20)
[2017-01-10] MEDS: HYDROCODONE/APAP 5/325 TAB PO PRN ×2 (13:46→18:33)
[2017-01-10] MEDS: FAMOTIDINE 20 MG TAB PO PRN (13:46)
--- NOTE | 2017-01-10 15:35 | HOSPPROG ---
Hospitalist Progress Note Assessment/Plan: 61 yo F w/hx of stage 4 colon cancer on chemotherapy pw n/v/d and found to have c diff # Acute c diff colitis - still having diarrhea and abdominal cramping particularly in right lower quadrant- WBC 4.3 CT abd (personally reviewed and interpreted) diffuse distal colonic thickening - cont PO vancomycin # n/v- in setting of recent chemotherapy and C. diff - cont zofran # Colon CA - s/p recent chemo therapy - oncology following # hypovolemia/poor po intake- improved with IVF- oxygen saturations 94% on RA - repleting electrolytes as needed - cont IVF # mucositis-sxs stable - cont lidocaine/acyclovir # htn: continue op meds # anemia: 22/ chemo stable Care plan reviewed with CM, interviewed with help of Gogo plane runner on phone Subjective: pain persists Objective: Vital Signs Temp Pulse Resp BP Pulse Ox 36.3 C 69 16 130/60 H 95 01/10/17 09:25 01/10/17 09:25 01/10/17 09:25 01/10/17 09:25 01/10/17 09:25 Laboratory Results 01/09/17 04:34 01/10/17 04:25 01/09/17 01/10/17 01/11/17 05:59 05:59 05:59 Intake Total 1636 1606 Output Total 3950 Balance -2314 1606 - Physical Exam Constitutional: chronically ill appearing Eyes: anicteric sclera Ears, Nose, Mouth, Throat: moist mucous membranes Cardiovascular: regular rate and rhythym Respiratory: no respiratory distress, no rales or rhonchi Gastrointestinal: normoactive bowel sounds, soft, non-tender abdomen Genitourinary: no bladder fullness Skin: warm, normal color Musculoskeletal: No asymmetric calves Neurologic: AAOx3 Psychiatric: interacting appropriately, not anxious Lymph, Heme, Immunologic: no cervical LAD ICD10 Worksheet Patient Problems: Problems Problem Status Onset C. difficile diarrhea Acute ~01/07/17 Stomatitis Acute Colon cancer metastasized to liver Chronic
[2017-01-10 17:23] LABS: POTASSIUM 3.8 mEq/L (3.5-5.2)
[2017-01-10] MEDS: ENOXAPARIN 30 MG/0.3 ML SYR SC SCH (18:33)
[2017-01-10] MEDS ORDERED: POTASSIUM CL 10 MEQ TAB PO ONE (22:11)
[2017-01-10] MEDS: PROMETHAZINE HCL 25 MG/ML INJ IVP PRN (22:14)
[2017-01-11] MEDS: ONDANSETRON DISINTEGRATING 4 MG TAB PO PRN ×3 (03:19→22:07)
[2017-01-11 04:27] LABS: IONIZED CALCIUM 1.16 MMOL/L (1.12-1.30)
[2017-01-11 04:59] LABS: MAGNESIUM 1.8 mg/dL (1.6-2.3); POTASSIUM 3.6 mEq/L (3.5-5.2)
[2017-01-11] MEDS: VANCOMYCIN 125 MG/2.5 ML UDL PO SCH ×4 (06:06→22:07)
[2017-01-11] MEDS ORDERED: MAGNESIUM SULF 1 GM/DEXTROSE 100 ML IV ONE (07:56)
[2017-01-11] MEDS: PANTOPRAZOLE SODIUM 40 MG TAB PO SCH (08:19)
[2017-01-11] MEDS: morphINE SR 30 MG TAB PO SCH ×2 (08:19→22:08)
[2017-01-11] MEDS: ACYCLOVIR 400 MG TAB PO SCH ×3 (08:21→17:28)
[2017-01-11] MEDS: ENOXAPARIN 30 MG/0.3 ML SYR SC SCH (08:21)
[2017-01-11] MEDS: METOPROLOL TARTRATE 50 MG TAB PO SCH ×2 (08:22→22:08)
[2017-01-11] MEDS: amLODIPine BESYLATE 5 MG TAB PO SCH (08:22)
--- NOTE | 2017-01-11 10:38 | SOAPPROG ---
SOAP Progress Note Assessment/Plan: Assessment: 1. metastatic colon cancer 2. diarrhea and mucositis due to XELIRI chemo 3. C dif diarrhea slowly improving. Plan: - continue PO vanco - continue other supportive care - will need to discuss dose modification w/ dr frias in the outpatient setting for subsequent cycles 01/10/17 12:07 01/11/17 10:37 Subjective: c/o RLQ abd pain. some diarrhea. Objective: exam: thin, NAD Lungs CTAB CV RRR no mGr Abd: +BS NT ND Ext: no edema Vital Signs Temp Pulse Resp BP Pulse Ox 36.6 C 78 16 140/69 H 99 01/11/17 07:36 01/11/17 08:22 01/11/17 07:36 01/11/17 08:22 01/11/17 07:36 Laboratory Results 01/09/17 04:34 01/11/17 03:45 01/10/17 01/11/17 01/12/17 05:59 05:59 05:59 Intake Total 1606 2800 Balance 1606 2800 ICD10 Worksheet Patient Problems: Problems Problem Status Onset C. difficile diarrhea Acute ~01/07/17 Stomatitis Acute Colon cancer metastasized to liver Chronic
[2017-01-11] MEDS ORDERED: POTASSIUM CL 10 MEQ TAB PO ONE (11:18)
[2017-01-11] MEDS: MAGNESIUM OXIDE 400 MG TAB PO SCH (13:23)
--- NOTE | 2017-01-11 14:21 | HOSPPROG ---
Hospitalist Progress Note Assessment/Plan: 61 yo F w/hx of stage 4 colon cancer on chemotherapy pw n/v/d and found to have c diff # Acute c diff colitis - still having diarrhea although less and abdominal cramping particularly in right lower quadrant- WBC 4.3 XRAY abd (personally reviewed and interpreted) no obstruction or bowel dilatation - cont PO vancomycin # n/v- in setting of recent chemotherapy and C. diff- improved slightly overnight- potassium 3.6 - cont zofran # Colon CA - s/p recent chemo therapy - oncology following # hypovolemia/poor po intake- improved with IVF- oxygen saturations 96% on RA - repleting electrolytes as needed - cont IVF # mucositis-sxs stable - cont lidocaine/acyclovir # htn: continue op meds # anemia: 22/ chemo stable Care plan reviewed with oncology- continue to monitor patient's progress daily - hopeful for discharge soon Subjective: fewer stools overnight Objective: Vital Signs Temp Pulse Resp BP Pulse Ox 36.6 C 78 16 140/69 H 99 01/11/17 07:36 01/11/17 08:22 01/11/17 07:36 01/11/17 08:22 01/11/17 07:36 Laboratory Results 01/09/17 04:34 01/11/17 03:45 01/10/17 01/11/17 01/12/17 05:59 05:59 05:59 Intake Total 1606 2800 Balance 1606 2800 - Physical Exam Constitutional: chronically ill appearing Eyes: anicteric sclera Ears, Nose, Mouth, Throat: moist mucous membranes Cardiovascular: regular rate and rhythym Respiratory: no respiratory distress, no rales or rhonchi Gastrointestinal: normoactive bowel sounds, tenderness, No guarding, No rebound Genitourinary: no bladder fullness Skin: warm, normal color Musculoskeletal: No asymmetric calves Neurologic: AAOx3 Psychiatric: interacting appropriately, No agitated Lymph, Heme, Immunologic: no cervical LAD ICD10 Worksheet Patient Problems: Problems Problem Status Onset C. difficile diarrhea Acute ~01/07/17 Stomatitis Acute Colon cancer metastasized to liver Chronic
[2017-01-11 18:11] LABS: POTASSIUM 3.6 mEq/L (3.5-5.2)
[2017-01-12] MEDS ORDERED: POTASSIUM CL 20 MEQ TAB PO ONE (01:04)
[2017-01-12 04:27] LABS: % IMMATURE GRANULYOCYTES 0.5 % (0.0-1.1); ABSOLUTE IMMATURE GRANULOCYTES 0.03 10^3/uL (0.00-0.10); ADD DIFF? NO; ADD MORPH? NO; ADD SCAN? NO; ATYPICAL LYMPHOCYTE FLAG 40 (0-99); FRAGMENT RBC FLAG 20 (0-99); HEMATOCRIT 30.9 % (38.0-47.0); HEMOGLOBIN 10.2 g/dL (12.6-16.3); LEFT SHIFT FLG 20 (0-99); LIPEMIA HEMOLYSIS FLAG 80 (0-99); MEAN CELL HEMOGLOBIN 28.2 pg (27.9-34.1); MEAN CELL VOLUME 85.4 fL (81.5-99.8); MEAN PLATELET VOLUME 10.1 fL (8.7-11.7); PLATELET CLUMPS FLAG 0 (0-99); PLATELET COUNT 255 10^3/uL (150-400); RED BLOOD CELL COUNT 3.62 10^6/uL (4.18-5.33)
[2017-01-12 04:43] LABS: ANION GAP 6 mEq/L (8-16); CALCIUM 8.8 mg/dL (8.5-10.4); CARBON DIOXIDE 23 mEq/l (22-31); CHLORIDE 104 mEq/L (97-110); CREATININE 0.6 mg/dL (0.6-1.0); GLOMERULAR FILTRATION RATE > 60; GLUCOSE 71 mg/dL (70-100); POTASSIUM 3.7 mEq/L (3.5-5.2); SODIUM 133 mEq/L (134-144)
[2017-01-12] MEDS: ONDANSETRON DISINTEGRATING 4 MG TAB PO PRN ×2 (04:44→10:41)
[2017-01-12] MEDS: VANCOMYCIN 125 MG/2.5 ML UDL PO SCH ×4 (04:52→21:49)
[2017-01-12] MEDS ORDERED: POTASSIUM CL 10 MEQ TAB PO ONE (08:41)
[2017-01-12] MEDS: MAGNESIUM OXIDE 400 MG TAB PO SCH (08:44)
[2017-01-12] MEDS: PANTOPRAZOLE SODIUM 40 MG TAB PO SCH (08:44)
[2017-01-12] MEDS: ACYCLOVIR 400 MG TAB PO SCH ×3 (08:44→18:06)
[2017-01-12] MEDS: morphINE SR 30 MG TAB PO SCH ×2 (08:45→21:49)
[2017-01-12] MEDS: METOPROLOL TARTRATE 50 MG TAB PO SCH ×2 (08:45→21:49)
[2017-01-12] MEDS: ENOXAPARIN 30 MG/0.3 ML SYR SC SCH (08:47)
[2017-01-12] MEDS: HYDROCODONE/APAP 5/325 TAB PO PRN (08:51)
[2017-01-12] MEDS: amLODIPine BESYLATE 5 MG TAB PO SCH (10:07)
[2017-01-12] MEDS ORDERED: IOPAMIDOL (ISOVUE-300) 100 ML BTL ONE (14:48)
--- NOTE | 2017-01-12 15:22 | HOSPPROG ---
Hospitalist Progress Note Assessment/Plan: 61 yo F w/hx of stage 4 colon cancer on chemotherapy pw n/v/d and found to have c diff # Acute c diff colitis - still having diarrhea approx 5 episodes in past 24 hours- WBC up to 6.11 XRAY abd (personally reviewed and interpreted) no obstruction or bowel dilatation - cont PO vancomycin QID # n/v- in setting of recent chemotherapy and C. diff- improved overnight- potassium 3.6 - cont zofran # Hyponatremia - NA 133 - will watch closely as may need IVF if cant keep adequate fluids down # Colon CA - s/p recent chemo therapy - oncology following - CT chest/abd/pelvis ordered # hypovolemia/poor po intake- improved with IVF- oxygen saturations 94% on RA - repleting electrolytes as needed - cont IVF # mucositis-sxs stable - cont lidocaine/acyclovir # htn: continue op meds # anemia: 22/ chemo stable Care plan reviewed with oncology- we will order Ct imaging today - family has asked for hospice consult Subjective: pain and nausea slightly improved Objective: Vital Signs Temp Pulse Resp BP Pulse Ox 36.5 C 81 14 129/70 H 93 01/12/17 08:53 01/12/17 08:53 01/12/17 08:53 01/12/17 10:07 01/12/17 08:53 Laboratory Results 01/12/17 04:19 01/12/17 04:19 01/11/17 01/12/17 01/13/17 05:59 05:59 05:59 Intake Total 2800 750 Balance 2800 750 - Physical Exam Constitutional: chronically ill appearing Eyes: anicteric sclera Ears, Nose, Mouth, Throat: dry mucous membranes Cardiovascular: regular rate and rhythym Respiratory: no respiratory distress, no rales or rhonchi Gastrointestinal: normoactive bowel sounds, tenderness, No guarding, No rebound Genitourinary: no bladder fullness Skin: warm, normal color Musculoskeletal: No asymmetric calves Neurologic: AAOx3 Psychiatric: interacting appropriately, depressed, flat affect Lymph, Heme, Immunologic: no cervical LAD ICD10 Worksheet Patient Problems: Problems Problem Status Onset C. difficile diarrhea Acute ~01/07/17 Stomatitis Acute Colon cancer metastasized to liver Chronic
--- NOTE | 2017-01-12 15:47 | SOAPPROG ---
SOAP Progress Note Assessment/Plan: E&M for colon cancer * Metastatic colon cancer: post cycle 2 of irinotecan + 5FU/capecitabine. Some of symptoms, such as mucositis, n/v, and diarrhea could be from chemotherapy. Not sure if she is responding so will get a CT to assess. If not responding, hospice care would be best. If she is responding could try single agent irinotecan. * C diff diarrhea: continue PO vanco and other supportive care Subjective: Seen with friend and sister (who lives in [facility]). Still with nausea and vomited last night. Also with abd pain and cramping. Objective: Vital Signs Temp Pulse Resp BP Pulse Ox 36.5 C 81 14 129/70 H 93 01/12/17 08:53 01/12/17 08:53 01/12/17 08:53 01/12/17 10:07 01/12/17 08:53 Laboratory Results 01/12/17 04:19 01/12/17 04:19 01/11/17 01/12/17 01/13/17 05:59 05:59 05:59 Intake Total 2800 750 Balance 2800 750 Physical Exam - Physical Exam General Appearance: no apparent distress Respiratory: lungs clear Cardiac/Chest: regular rate, rhythm Abdomen: soft, hepatomegaly, No non-tender (mostly RU and Mid) ICD10 Worksheet Patient Problems: Problems Problem Status Onset C. difficile diarrhea Acute ~01/07/17 Stomatitis Acute Colon cancer metastasized to liver Chronic
[2017-01-12] MEDS ORDERED: methylPREDNISolone SOD SUCC 125 MG/2 ML VIAL IVP ONE (16:00)
[2017-01-12] MEDS ORDERED: FAMOTIDINE 20 MG/NACL 50 ML IV ONE (16:00)
[2017-01-12 18:52] LABS: POTASSIUM 3.9 mEq/L (3.5-5.2)
[2017-01-13 05:55] LABS: CALCIUM 9.3 mg/dL (8.5-10.4); CARBON DIOXIDE 22 mEq/l (22-31); CHLORIDE 104 mEq/L (97-110); CREATININE 0.6 mg/dL (0.6-1.0); GLOMERULAR FILTRATION RATE > 60; GLUCOSE 176 mg/dL (70-100); SODIUM 135 mEq/L (134-144)
[2017-01-13 05:57] LABS: ANION GAP 9 mEq/L (8-16)
[2017-01-13] MEDS: VANCOMYCIN 125 MG/2.5 ML UDL PO SCH ×4 (05:59→20:20)
[2017-01-13] MEDS: morphINE SR 30 MG TAB PO SCH ×2 (09:39→20:20)
[2017-01-13] MEDS: MAGNESIUM OXIDE 400 MG TAB PO SCH (09:39)
[2017-01-13] MEDS: METOPROLOL TARTRATE 50 MG TAB PO SCH ×2 (09:39→20:20)
[2017-01-13] MEDS: ACYCLOVIR 400 MG TAB PO SCH ×3 (09:39→18:18)
[2017-01-13] MEDS: amLODIPine BESYLATE 5 MG TAB PO SCH (09:40)
[2017-01-13] MEDS: ENOXAPARIN 30 MG/0.3 ML SYR SC SCH (09:42)
[2017-01-13] MEDS: PANTOPRAZOLE SODIUM 40 MG TAB PO SCH (09:45)
[2017-01-13] MEDS: ONDANSETRON 4 MG/2 ML VIAL IVP PRN (09:52)
--- NOTE | 2017-01-13 10:24 | SOAPPROG ---
SOAP Progress Note Assessment/Plan: E&M for colon cancer * Metastatic colon cancer: post cycle 2 of irinotecan + 5FU/capecitabine. No improvement on CT scan in malignancy and she has been hospitalized both times despite dose reductions. With no improvement, I recommend stopping chemotherapy and go on comfort measures/hospice care. I will try low dose dex to help with pain and appetite. Patient seen with sister using [facility] service. * C diff diarrhea: continue PO vanco and other supportive care Subjective: Still with nausea but no vomiting. Diarrhea better. Still with abd pain. Objective: Vital Signs Temp Pulse Resp BP Pulse Ox 36.4 C 63 18 137/47 H 97 01/13/17 09:24 01/13/17 09:39 01/13/17 09:24 01/13/17 09:40 01/13/17 09:24 Laboratory Results 01/12/17 04:19 01/13/17 04:45 01/12/17 01/13/17 01/14/17 05:59 05:59 05:59 Intake Total [address] Chest, Abdomen, Pelvis Indication: Colon cancer, with known metastases. Restaging. Impression: 1. Nothing new in the chest. Stable granulomatous disease. 2. Significant interval improvement in the descending colonic wall thickening/ colitis. 3. New thickening of the terminal ileum loop of small bowel and the ileocecal valve, involving part of the cecum, as well. 4. Significant improvement in amount of ascites. 5. Stable hepatic metastasis. 6. Diffuse mottled appearance to the pelvic bones, without obvious focal metastatic lesion, stable. Dictated By: Sharron Salazar MD - Time Spent With Patient Time Spent With Patient: >35 min Physical Exam - Physical Exam General Appearance: no apparent distress Abdomen: soft, hepatomegaly, No non-tender ICD10 Worksheet Patient Problems: Problems Problem Status Onset C. difficile diarrhea Acute ~01/07/17 Stomatitis Acute Colon cancer metastasized to liver Chronic
[2017-01-13] MEDS: HYDROCODONE/APAP 5/325 TAB PO PRN ×2 (13:17→23:32)
[2017-01-13] MEDS: NS 1,000 ML IV SCH ×2 (15:11→23:31)
[2017-01-13 18:53] LABS: POTASSIUM 3.7 mEq/L (3.5-5.2)
[2017-01-13] MEDS: DEXAMETHASONE 2 MG TAB PO SCH (20:20)
[2017-01-13] MEDS: ONDANSETRON DISINTEGRATING 4 MG TAB PO PRN (20:20)
[2017-01-13] MEDS: FAMOTIDINE 20 MG TAB PO PRN (20:20)
[2017-01-13] MEDS ORDERED: POTASSIUM CL 10 MEQ TAB PO ONE ×2 (20:27→23:30)
--- NOTE | 2017-01-13 23:54 | HOSPPROG ---
Hospitalist Progress Note Assessment/Plan: 61 yo F w/hx of stage 4 colon cancer on chemotherapy pw n/v/d and found to have c diff # Acute c diff colitis - still having diarrhea approx 5 episodes in past 24 hours- WBC up to 6.11 abd xray - no obstruction or bowel dilatation - cont PO vancomycin QID # n/v- in setting of recent chemotherapy and C. diff- improved overnight- potassium 4.0 - cont zofran # Hyponatremia - NA 135 - will watch closely as may need IVF if cant keep adequate fluids down # Colon CA - s/p recent chemo therapy - oncology following CT chest (personally reviewed and interpreted) without new disease - old stable granulomatous disease - CT chest/abd/pelvis ordered # hypovolemia/poor po intake- improved with IVF- oxygen saturations 94% on RA - repleting electrolytes as needed - cont IVF # mucositis-sxs stable - cont lidocaine/acyclovir # htn: continue op meds # anemia: 22/ chemo stable Care plan reviewed with oncology- will consult with hospice today Subjective: abdominal pain persists Objective: Vital Signs Temp Pulse Resp BP Pulse Ox 36.6 C 62 16 136/60 H 96 01/13/17 19:39 01/13/17 20:20 01/13/17 19:39 01/13/17 20:20 01/13/17 19:39 Laboratory Results 01/12/17 04:19 01/13/17 18:10 01/12/17 01/13/17 01/14/17 05:59 05:59 05:59 Intake Total 750 200 Balance 750 200 - Physical Exam Constitutional: no apparent distress Eyes: anicteric sclera Ears, Nose, Mouth, Throat: dry mucous membranes Cardiovascular: regular rate and rhythym Respiratory: no respiratory distress, no rales or rhonchi Gastrointestinal: normoactive bowel sounds, tenderness Genitourinary: no bladder fullness Skin: warm, normal color Musculoskeletal: No asymmetric calves Neurologic: AAOx3 Psychiatric: interacting appropriately Lymph, Heme, Immunologic: no cervical LAD ICD10 Worksheet Patient Problems: Problems Problem Status Onset C. difficile diarrhea Acute ~01/07/17 Stomatitis Acute Colon cancer metastasized to liver Chronic
[2017-01-14 05:10] LABS: HEMATOCRIT 29.7 % (38.0-47.0); HEMOGLOBIN 9.7 g/dL (12.6-16.3); MEAN CELL HEMOGLOBIN 28.2 pg (27.9-34.1); MEAN CELL HEMOGLOBIN CONCENTR. 32.7 g/dL (32.4-36.7); MEAN CELL VOLUME 86.3 fL (81.5-99.8); RED BLOOD CELL COUNT 3.44 10^6/uL (4.18-5.33); RED CELL DISTRIBUTION WIDTH 17.2 % (11.5-15.2)
[2017-01-14] MEDS: VANCOMYCIN 125 MG/2.5 ML UDL PO SCH ×4 (05:22→22:33)
[2017-01-14] MEDS: HYDROCODONE/APAP 5/325 TAB PO PRN ×2 (05:22→16:01)
[2017-01-14 05:24] LABS: ANION GAP 10 mEq/L (8-16); CALCIUM 8.8 mg/dL (8.5-10.4); CARBON DIOXIDE 23 mEq/l (22-31); CHLORIDE 105 mEq/L (97-110); CREATININE 0.5 mg/dL (0.6-1.0); GLOMERULAR FILTRATION RATE > 60; GLUCOSE 131 mg/dL (70-100); POTASSIUM 4.2 mEq/L (3.5-5.2); SODIUM 138 mEq/L (134-144)
[2017-01-14] MEDS: ACYCLOVIR 400 MG TAB PO SCH ×3 (08:01→18:18)
[2017-01-14] MEDS: amLODIPine BESYLATE 5 MG TAB PO SCH (08:01)
[2017-01-14] MEDS: MAGNESIUM OXIDE 400 MG TAB PO SCH (08:01)
[2017-01-14] MEDS: morphINE SR 30 MG TAB PO SCH ×2 (08:01→22:33)
[2017-01-14] MEDS: PANTOPRAZOLE SODIUM 40 MG TAB PO SCH (08:02)
[2017-01-14] MEDS: DEXAMETHASONE 2 MG TAB PO SCH ×2 (08:02→22:33)
[2017-01-14] MEDS: ENOXAPARIN 30 MG/0.3 ML SYR SC SCH (08:03)
[2017-01-14] MEDS: METOPROLOL TARTRATE 50 MG TAB PO SCH ×2 (10:07→22:33)
--- NOTE | 2017-01-14 11:09 | HOSPPROG ---
Hospitalist Progress Note Assessment/Plan: 61 yo F w/hx of stage 4 colon cancer on chemotherapy pw n/v/d and found to have c diff # Acute c diff colitis - diarrhea nearly resolved overnight- WBC up to 6.05 Ct abd (personally reviewed and interpreted) improving colonic thickening - cont PO vancomycin QID # n/v- in setting of recent chemotherapy and C. diff- none overnight- potassium 4.2 - cont zofran # nasal and ear congestion - flonase trial # Hyponatremia - NA 138 - after gentle hydration overnight # Colon CA - s/p recent chemo therapy - oncology following CT chest -without new disease - old stable granulomatous disease - no additional chemotherapy recommended - hospice consult # hypovolemia/poor po intake- improved with IVF- oxygen saturations 95% on RA - repleting electrolytes as needed - cont IVF # mucositis-sxs stable - cont lidocaine/acyclovir # htn: continue op meds # anemia: 22/ chemo stable Care plan reviewed with CM- working to find hospice center for discharge Subjective: pressure in ears Objective: Vital Signs Temp Pulse Resp BP Pulse Ox 36.6 C 54 L 16 137/81 H 95 01/14/17 07:48 01/14/17 07:48 01/14/17 07:48 01/14/17 07:48 01/14/17 07:48 Laboratory Results 01/14/17 04:38 01/14/17 04:38 01/13/17 01/14/17 01/15/17 05:59 05:59 05:59 Intake Total 200 1109 Output Total 1999 Balance 200 1109 -1999 - Physical Exam Constitutional: chronically ill appearing Eyes: anicteric sclera Ears, Nose, Mouth, Throat: moist mucous membranes Cardiovascular: regular rate and rhythym Respiratory: no respiratory distress Gastrointestinal: normoactive bowel sounds, tenderness (mild) Genitourinary: no bladder fullness Skin: warm, normal color Musculoskeletal: No asymmetric calves Neurologic: AAOx3 Psychiatric: interacting appropriately, not anxious Lymph, Heme, Immunologic: no cervical LAD ICD10 Worksheet Patient Problems: Problems Problem Status Onset C. difficile diarrhea Acute ~01/07/17 Stomatitis Acute Colon cancer metastasized to liver Chronic
--- NOTE | 2017-01-14 14:53 | SOAPPROG ---
ARLENE Progress Note Assessment/Plan: E&M for colon cancer * Metastatic colon cancer: post cycle 2 of irinotecan + 5FU/capecitabine. No improvement in malignancy on CT scan and she has been hospitalized both times despite dose reductions. With no improvement, I recommend stopping chemotherapy and go on comfort measures/hospice care. I will try low dose dex to help with pain and appetite. * C diff diarrhea: continue PO vanco and other supportive care * Disposition: Very difficult situation and working with d/c planning. Patient could travel if need to as she is currently stable. Subjective: Patient's niece from [place] translated over the phone. Patient's sister with her. She cannot go back to the home she was living at. They really have no where to go. She is feeling better with pain in mid abd. Objective: Vital Signs Temp Pulse Resp BP Pulse Ox 36.6 C 54 L 16 137/81 H 95 01/14/17 07:48 01/14/17 07:48 01/14/17 07:48 01/14/17 07:48 01/14/17 07:48 Laboratory Results 01/14/17 04:38 01/14/17 04:38 01/13/17 01/14/17 01/15/17 05:59 05:59 05:59 Intake Total 200 1109 Output Total 1999 Balance 200 1109 -2000 Physical Exam - Physical Exam General Appearance: no apparent distress ICD10 Worksheet Patient Problems: Problems Problem Status Onset C. difficile diarrhea Acute ~01/07/17 Stomatitis Acute Colon cancer metastasized to liver Chronic
[2017-01-14] MEDS: FLUTICASONE NASAL 120 SPRAYS/16 GM MDI EACHNARE SCH (15:58)
[2017-01-14 18:14] LABS: POTASSIUM 4.1 mEq/L (3.5-5.2)
[2017-01-15 05:16] LABS: POTASSIUM 4.6 mEq/L (3.5-5.2)
[2017-01-15] MEDS: VANCOMYCIN 125 MG/2.5 ML UDL PO SCH ×4 (05:57→21:04)
[2017-01-15] MEDS: ENOXAPARIN 30 MG/0.3 ML SYR SC SCH (07:57)
[2017-01-15] MEDS: ACYCLOVIR 400 MG TAB PO SCH ×3 (07:57→17:09)
[2017-01-15] MEDS: PANTOPRAZOLE SODIUM 40 MG TAB PO SCH (07:58)
[2017-01-15] MEDS: morphINE SR 30 MG TAB PO SCH ×2 (07:58→21:04)
[2017-01-15] MEDS: DEXAMETHASONE 2 MG TAB PO SCH ×2 (08:09→21:02)
[2017-01-15] MEDS: amLODIPine BESYLATE 5 MG TAB PO SCH (08:09)
[2017-01-15] MEDS: MAGNESIUM OXIDE 400 MG TAB PO SCH (08:09)
[2017-01-15] MEDS: MBX SOLN 30 ML BOTTLE PO PRN (08:10)
[2017-01-15] MEDS: FLUTICASONE NASAL 120 SPRAYS/16 GM MDI EACHNARE SCH (08:10)
[2017-01-15] MEDS: METOPROLOL TARTRATE 50 MG TAB PO SCH ×2 (09:16→22:02)
--- NOTE | 2017-01-15 14:00 | HOSPPROG ---
Hospitalist Progress Note Assessment/Plan: 61 yo F w/hx of stage 4 colon cancer on chemotherapy pw n/v/d and found to have c diff # Acute c diff colitis - diarrhea resolved Ct abd (personally reviewed and interpreted) improving colonic thickening - cont PO vancomycin QID # n/v- in setting of recent chemotherapy and C. diff - none overnight - potassium 4.2 - cont zofran # nasal and ear congestion - flonase trial # Hyponatremia - NA normalized after IV hydration # Colon CA - s/p recent chemo therapy - oncology following CT chest -without new disease - old stable granulomatous disease - discussed with oncology, no additional chemotherapy recommended - hospice / comfort care planned # hypovolemia/poor po intake- improved with IVF - oxygen saturations 95% on RA - repleting electrolytes as needed - cont IVF # mucositis-sxs stable - cont lidocaine/acyclovir # htn: continue op meds # anemia: 2/2 chemo, stable Care plan reviewed with CM- plan for hospice at SNF, working on arranging [place] food. Subjective: Pt doing okay. Appetite fair. No oral pain. No fevers. No more N /V. Objective: Vital Signs Temp Pulse Resp BP Pulse Ox 36.4 C 58 L 12 111/57 L 95 01/15/17 04:52 01/15/17 08:00 01/15/17 08:00 01/15/17 08:00 01/15/17 08:00 Laboratory Results 01/14/17 04:38 01/15/17 04:43 01/14/17 01/15/17 01/16/17 05:59 05:59 05:59 Intake Total 1109 500 Output Total 2000 Balance 1109 -1500 - Physical Exam Constitutional: no apparent distress Eyes: PERRL Ears, Nose, Mouth, Throat: moist mucous membranes Cardiovascular: regular rate and rhythym Respiratory: no respiratory distress Gastrointestinal: normoactive bowel sounds, soft, non-tender abdomen Skin: warm Musculoskeletal: full muscle strength Neurologic: AAOx3 Psychiatric: interacting appropriately ICD10 Worksheet Patient Problems: Problems Problem Status Onset C. difficile diarrhea Acute ~01/07/17 Stomatitis Acute Colon cancer metastasized to liver Chronic
[2017-01-15] MEDS: HYDROCODONE/APAP 5/325 TAB PO PRN (15:27)
[2017-01-15 18:31] LABS: POTASSIUM 4.2 mEq/L (3.5-5.2)
[2017-01-16 05:27] LABS: POTASSIUM 4.8 mEq/L (3.5-5.2)
[2017-01-16] MEDS: PANTOPRAZOLE SODIUM 40 MG TAB PO SCH (06:08)
[2017-01-16] MEDS: VANCOMYCIN 125 MG/2.5 ML UDL PO SCH ×4 (06:08→21:15)
[2017-01-16] MEDS: METOPROLOL TARTRATE 50 MG TAB PO SCH (09:02)
[2017-01-16] MEDS: MAGNESIUM OXIDE 400 MG TAB PO SCH (09:03)
[2017-01-16] MEDS: DEXAMETHASONE 2 MG TAB PO SCH ×2 (09:03→21:15)
[2017-01-16] MEDS: morphINE SR 30 MG TAB PO SCH ×2 (09:03→21:15)
[2017-01-16] MEDS: ENOXAPARIN 30 MG/0.3 ML SYR SC SCH (09:03)
[2017-01-16] MEDS: ACYCLOVIR 400 MG TAB PO SCH ×2 (09:03→11:45)
[2017-01-16] MEDS: amLODIPine BESYLATE 5 MG TAB PO SCH (09:03)
[2017-01-16] MEDS: FLUTICASONE NASAL 120 SPRAYS/16 GM MDI EACHNARE SCH (09:04)
[2017-01-16] MEDS ORDERED: HYDROmorphONE/DILAUDID 1 MG/ML SYR IVP PRN (09:38)
[2017-01-16] MEDS: HYDROCODONE/APAP 5/325 TAB PO PRN (11:50)
--- NOTE | 2017-01-16 14:09 | SOAPPROG ---
SOAP Progress Note Assessment/Plan: E&M for colon cancer * Metastatic colon cancer: post cycle 2 of irinotecan + 5FU/capecitabine. No improvement in malignancy on CT scan and she has been hospitalized both times despite dose reductions. With no improvement, I recommended stopping chemotherapy and go on comfort measures/hospice care. She is on low dose dex to help with pain and appetite. * C diff diarrhea: on PO vanco * Disposition: Very difficult situation and d/c planning working on it. I will sign off but our service will be available for any questions. Subjective: In room with sister. Waiting for placement. Objective: Vital Signs Temp Pulse Resp BP Pulse Ox 36.3 C 62 16 108/61 94 01/16/17 08:00 01/16/17 08:00 01/16/17 08:00 01/16/17 08:00 01/16/17 08:00 Laboratory Results 01/14/17 04:38 01/16/17 04:40 01/15/17 01/16/17 01/17/17 05:59 05:59 05:59 Intake Total 500 1200 Output Total 2000 Balance -1500 1200 Physical Exam - Physical Exam General Appearance: no apparent distress ICD10 Worksheet Patient Problems: Problems Problem Status Onset C. difficile diarrhea Acute ~01/07/17 Stomatitis Acute Colon cancer metastasized to liver Chronic
--- NOTE | 2017-01-16 16:29 | HOSPPROG ---
Hospitalist Progress Note Assessment/Plan: 61 yo F w/hx of stage 4 colon cancer on chemotherapy pw n/v/d and found to have c diff # Acute c diff colitis - diarrhea resolved Ct abd (personally reviewed and interpreted) improving colonic thickening - cont PO vancomycin QID # n/v- in setting of recent chemotherapy and C. diff - none overnight - potassium 4.2 - cont zofran # nasal and ear congestion - flonase trial # Hyponatremia - NA normalized after IV hydration # Colon CA - s/p recent chemo therapy - oncology following CT chest -without new disease - old stable granulomatous disease - discussed with oncology, no additional chemotherapy recommended - hospice / comfort care planned # hypovolemia/poor po intake- improved with IVF - oxygen saturations 95% on RA - repleting electrolytes as needed - cont IVF # mucositis-sxs stable - cont lidocaine/acyclovir # htn: continue op meds # anemia: 2/2 chemo, stable Care plan reviewed with CM- plan for hospice at SNF, working on arranging [place] food. Subjective: Pt doing ok, pain controlled, no complaints. Objective: Vital Signs Temp Pulse Resp BP Pulse Ox 36.3 C 62 16 108/61 94 01/16/17 08:00 01/16/17 08:00 01/16/17 08:00 01/16/17 08:00 01/16/17 08:00 Laboratory Results 01/14/17 04:38 01/16/17 04:40 01/15/17 01/16/17 01/17/17 05:59 05:59 05:59 Intake Total 500 1200 Output Total 2000 Balance -1500 1200 - Physical Exam Constitutional: no apparent distress Eyes: PERRL Ears, Nose, Mouth, Throat: moist mucous membranes Cardiovascular: regular rate and rhythym Respiratory: no respiratory distress Gastrointestinal: normoactive bowel sounds, soft, non-tender abdomen Skin: warm Musculoskeletal: full muscle strength Neurologic: AAOx3 Psychiatric: interacting appropriately ICD10 Worksheet Patient Problems: Problems Problem Status Onset C. difficile diarrhea Acute ~01/07/17 Stomatitis Acute Colon cancer metastasized to liver Chronic
[2017-01-16 19:42] LABS: POTASSIUM 4.5 mEq/L (3.5-5.2)
[2017-01-17 04:46] LABS: POTASSIUM 4.6 mEq/L (3.5-5.2)
[2017-01-17] MEDS: VANCOMYCIN 125 MG/2.5 ML UDL PO SCH ×4 (06:27→19:59)
[2017-01-17] MEDS: MAGNESIUM OXIDE 400 MG TAB PO SCH (09:43)
[2017-01-17] MEDS: DEXAMETHASONE 2 MG TAB PO SCH ×2 (09:43→19:59)
[2017-01-17] MEDS: morphINE SR 30 MG TAB PO SCH ×2 (09:44→19:59)
[2017-01-17] MEDS: ENOXAPARIN 30 MG/0.3 ML SYR SC SCH (09:44)
[2017-01-17] MEDS: FLUTICASONE NASAL 120 SPRAYS/16 GM MDI EACHNARE SCH (09:50)
[2017-01-17] MEDS ORDERED: MAGNESIUM HYDROXIDE 30 ML UDCUP PO PRN (16:58)
--- NOTE | 2017-01-17 16:59 | HOSPPROG ---
Hospitalist Progress Note Assessment/Plan: 61 yo F w/hx of stage 4 colon cancer on chemotherapy pw n/v/d and found to have c diff # Acute c diff colitis - diarrhea resolved - cont PO vancomycin QID # n/v- in setting of recent chemotherapy and C. diff - improved, potassium nl - d/c K protocol - cont zofran # Hyponatremia - NA normalized after IV hydration # Colon CA - s/p recent chemo therapy - oncology following - discussed with oncology, no additional chemotherapy recommended - hospice / comfort care planned # hypovolemia/poor po intake- improved with IVF - oxygen saturations 95% on RA - repleting electrolytes as needed # mucositis-sxs stable - cont lidocaine/acyclovir # htn: continue op meds # anemia: 2/2 chemo, stable Care plan reviewed with CM- plan for hospice at SNF early next week, working on arranging [place] food. Subjective: Doing ok, no complaints. Objective: Vital Signs Temp Pulse Resp BP Pulse Ox 36.6 C 69 16 123/68 H 96 01/17/17 08:00 01/17/17 08:00 01/17/17 08:00 01/17/17 08:00 01/17/17 08:00 Laboratory Results 01/14/17 04:38 01/17/17 03:51 01/16/17 01/17/17 01/18/17 05:59 05:59 05:59 Intake Total 1200 Balance 1200 - Physical Exam Constitutional: no apparent distress Neurologic: AAOx3 Psychiatric: interacting appropriately ICD10 Worksheet Patient Problems: Problems Problem Status Onset C. difficile diarrhea Acute ~01/07/17 Stomatitis Acute Colon cancer metastasized to liver Chronic
[2017-01-18] MEDS: VANCOMYCIN 125 MG/2.5 ML UDL PO SCH ×4 (05:34→20:56)
[2017-01-18] MEDS: MAGNESIUM OXIDE 400 MG TAB PO SCH (08:29)
[2017-01-18] MEDS: morphINE SR 30 MG TAB PO SCH ×2 (08:29→20:56)
[2017-01-18] MEDS: ENOXAPARIN 30 MG/0.3 ML SYR SC SCH (08:29)
[2017-01-18] MEDS: DEXAMETHASONE 2 MG TAB PO SCH ×2 (08:29→20:56)
[2017-01-18] MEDS: FLUTICASONE NASAL 120 SPRAYS/16 GM MDI EACHNARE SCH (08:37)
--- NOTE | 2017-01-18 16:27 | HOSPPROG ---
Hospitalist Progress Note Assessment/Plan: 61 yo F w/hx of stage 4 colon cancer on chemotherapy pw n/v/d and found to have c diff # Acute c diff colitis - diarrhea resolved - cont PO vancomycin QID # n/v- in setting of recent chemotherapy and C. diff - improved, potassium nl - d/c K protocol - cont zofran # Hyponatremia - NA normalized after IV hydration # Colon CA - s/p recent chemo therapy - oncology following - discussed with oncology, no additional chemotherapy recommended - hospice / comfort care planned # hypovolemia/poor po intake- improved with IVF - oxygen saturations 95% on RA - repleting electrolytes as needed # mucositis-sxs stable - cont lidocaine/acyclovir # htn: continue op meds # anemia: 2/2 chemo, stable Care plan reviewed with CM- plan for hospice at SNF early next week, working on arranging [place] food. Subjective: Pt doing fine. No new complaints. Waiting for SNF transfer for hospice. Objective: Vital Signs Temp Pulse Resp BP Pulse Ox 36.3 C 56 L 16 153/69 H 98 01/18/17 15:44 01/18/17 15:44 01/18/17 15:44 01/18/17 15:44 01/18/17 15:44 Laboratory Results 01/14/17 04:38 01/17/17 03:51 01/17/17 01/18/17 01/19/17 05:59 05:59 05:59 Intake Total 1550 300 Balance 1550 300 - Physical Exam Constitutional: no apparent distress, chronically ill appearing Neurologic: AAOx3 Psychiatric: interacting appropriately ICD10 Worksheet Patient Problems: Problems Problem Status Onset C. difficile diarrhea Acute ~01/07/17 Stomatitis Acute Colon cancer metastasized to liver Chronic
[2017-01-18] MEDS: HYDROCODONE/APAP 5/325 TAB PO PRN (20:57)
[2017-01-19] MEDS: VANCOMYCIN 125 MG/2.5 ML UDL PO SCH ×4 (05:20→22:03)
[2017-01-19] MEDS: morphINE SR 30 MG TAB PO SCH ×2 (09:15→20:04)
[2017-01-19] MEDS: DEXAMETHASONE 2 MG TAB PO SCH ×2 (09:15→20:04)
[2017-01-19] MEDS: ENOXAPARIN 30 MG/0.3 ML SYR SC SCH (09:15)
[2017-01-19] MEDS: MAGNESIUM OXIDE 400 MG TAB PO SCH (09:15)
[2017-01-19] MEDS: FLUTICASONE NASAL 120 SPRAYS/16 GM MDI EACHNARE SCH ×2 (09:16→09:17)
--- NOTE | 2017-01-19 17:34 | HOSPPROG ---
Hospitalist Progress Note Assessment/Plan: 61 yo F w/hx of stage 4 colon cancer on chemotherapy admitted with n/v/d and found to have c diff. Now awaiting d/c to SNF on hospice once medicaid approval received. # Acute c diff colitis - diarrhea resolved - cont PO vancomycin QID, day 07/02 # n/v- in setting of recent chemotherapy and C. diff - improved - prn anti-emetics # Colon CA - s/p recent chemo therapy - oncology following - discussed with oncology, no additional chemotherapy recommended - hospice / comfort care planned # hypovolemia/poor po intake- improved with IVF - oxygen saturations 95% on RA - repleting electrolytes as needed # mucositis-sxs stable - cont lidocaine/acyclovir # htn: continue op meds # anemia: 2/2 chemo, stable # dispo: planning for hospice at SNF, awaiting medicaid approval, hopefully dc in 1-2 days Subjective: Pt up in bed, no complaints. Objective: Vital Signs Temp Pulse Resp BP Pulse Ox 36.6 C 56 L 16 136/74 H 97 01/19/17 16:00 01/19/17 16:00 01/19/17 16:00 01/19/17 16:00 01/19/17 16:00 Laboratory Results 01/14/17 04:38 01/17/17 03:51 01/18/17 01/19/17 01/20/17 05:59 05:59 05:59 Intake Total 1550 1500 Balance 1550 1500 - Physical Exam Constitutional: no apparent distress, chronically ill appearing Neurologic: AAOx3 Psychiatric: interacting appropriately ICD10 Worksheet Patient Problems: Problems Problem Status Onset C. difficile diarrhea Acute ~01/07/17 Stomatitis Acute Colon cancer metastasized to liver Chronic
[2017-01-20] MEDS: VANCOMYCIN 125 MG/2.5 ML UDL PO SCH ×4 (05:30→20:39)
[2017-01-20] MEDS: morphINE SR 30 MG TAB PO SCH ×2 (08:27→20:39)
[2017-01-20] MEDS: DEXAMETHASONE 2 MG TAB PO SCH ×2 (08:27→20:39)
[2017-01-20] MEDS: MAGNESIUM OXIDE 400 MG TAB PO SCH (08:27)
[2017-01-20] MEDS: FLUTICASONE NASAL 120 SPRAYS/16 GM MDI EACHNARE SCH (09:17)
[2017-01-20] MEDS: ENOXAPARIN 30 MG/0.3 ML SYR SC SCH (09:17)
[2017-01-20] MEDS: MBX SOLN 30 ML BOTTLE PO PRN (13:11)
[2017-01-20] MEDS: HYDROCODONE/APAP 5/325 TAB PO PRN (13:13)
--- NOTE | 2017-01-20 14:46 | HOSPPROG ---
Hospitalist Progress Note Assessment/Plan: 61 yo F w/hx of stage 4 colon cancer on chemotherapy pw n/v/d and found to have c diff # Acute c diff colitis - diarrhea nearly resolved overnight- WBC up to 6.05 Ct abd (personally reviewed and interpreted) improving colonic thickening - cont PO vancomycin QID day # n/v- in setting of recent chemotherapy and C. diff- none overnight- potassium 4.6 - cont zofran # nasal and ear congestion - flonase trial # Hyponatremia - NA 138 - after gentle hydration overnight # Colon CA - s/p recent chemo therapy - oncology following CT chest -without new disease - old stable granulomatous disease - no additional chemotherapy recommended - hospice consult # hypovolemia/poor po intake- improved with IVF- oxygen saturations 95% on RA - dc electrolyte protocols # mucositis-sxs stable - cont lidocaine/acyclovir # htn: continue op meds # anemia: 22/ chemo stable Care plan reviewed with oncology- no acute issues they have signed off for simply working on placement Subjective: diarrhea improved Objective: Vital Signs Temp Pulse Resp BP Pulse Ox 36.5 C 68 16 145/73 H 98 01/20/17 09:11 01/20/17 09:11 01/20/17 09:11 01/20/17 09:11 01/20/17 09:11 Laboratory Results 01/14/17 04:38 01/17/17 03:51 01/19/17 01/20/17 01/21/17 05:59 05:59 05:59 Intake Total 1500 700 Balance 1500 700 - Physical Exam Constitutional: chronically ill appearing Eyes: anicteric sclera Ears, Nose, Mouth, Throat: dry mucous membranes Cardiovascular: regular rate and rhythym Respiratory: no respiratory distress Gastrointestinal: normoactive bowel sounds Genitourinary: no bladder fullness Skin: warm, normal color Musculoskeletal: No asymmetric calves Neurologic: AAOx3 Psychiatric: interacting appropriately, not anxious Lymph, Heme, Immunologic: no cervical LAD ICD10 Worksheet Patient Problems: Problems Problem Status Onset C. difficile diarrhea Acute ~01/07/17 Stomatitis Acute Colon cancer metastasized to liver Chronic
[2017-01-20] MEDS ORDERED: DIPHENHYDRAMINE CREAM TP PRN (16:50)
[2017-01-20] MEDS: diphenhydrAMINE 25 MG CAP PO PRN (17:54)
[2017-01-21] MEDS: VANCOMYCIN 125 MG/2.5 ML UDL PO SCH ×4 (06:25→20:29)
[2017-01-21] MEDS: diphenhydrAMINE 25 MG CAP PO PRN (06:25)
[2017-01-21] MEDS: LIDOCAINE 2% VISCOUS 15 ML UDCUP PO PRN ×3 (06:25→20:30)
[2017-01-21] MEDS: ENOXAPARIN 30 MG/0.3 ML SYR SC SCH (08:14)
[2017-01-21] MEDS: morphINE SR 30 MG TAB PO SCH ×2 (08:14→20:29)
[2017-01-21] MEDS: MAGNESIUM OXIDE 400 MG TAB PO SCH (08:14)
[2017-01-21] MEDS: DEXAMETHASONE 2 MG TAB PO SCH ×2 (08:14→20:29)
[2017-01-21] MEDS ORDERED: NYSTATIN SUSP 500000 UNIT/5 ML UDCUP PO PRN (09:56)
--- NOTE | 2017-01-21 09:58 | SOAPPROG ---
SOAP Progress Note Assessment/Plan: Assessment: 1. metastatic colon cancer 2. diarrhea and mucositis due to XELIRI chemo 3. C dif diarrhea Plan: - hospice when insurance situation is worked out - oral nystatin for oral thrush - if not effective, can try fluconazole Subjective: c/o mouth pain. Objective: exam: thin, tired, NAD some oral thrush lungs CTAB CV RRR no MGR Abd +BS NT ND Ext: no edema Vital Signs Temp Pulse Resp BP Pulse Ox 36.6 C 59 L 17 173/93 H 98 01/21/17 08:00 01/21/17 08:00 01/21/17 08:00 01/21/17 08:00 01/21/17 08:00 Laboratory Results 01/14/17 04:38 01/17/17 03:51 01/20/17 01/21/17 01/22/17 05:59 05:59 05:59 Intake Total 700 800 Balance 700 800 ICD10 Worksheet Patient Problems: Problems Problem Status Onset C. difficile diarrhea Acute ~01/07/17 Stomatitis Acute Colon cancer metastasized to liver Chronic
[2017-01-21] MEDS: FLUTICASONE NASAL 120 SPRAYS/16 GM MDI EACHNARE SCH (11:50)
--- NOTE | 2017-01-21 16:08 | HOSPPROG ---
Hospitalist Progress Note Assessment/Plan: 61 yo F w/hx of stage 4 colon cancer on chemotherapy pw n/v/d and found to have c diff # mucositis-visually looks like thrush - start nystatin swish and swallow - cont lidocaine/acyclovir # Acute c diff colitis - diarrhea nearly resolved overnight- WBC up to 6.05 Ct abd (personally reviewed and interpreted) improving colonic thickening - cont PO vancomycin QID day completes at the end of today # n/v- in setting of recent chemotherapy and C. diff- none overnight- potassium 4.6 - cont zofran # nasal and ear congestion - flonase trial # Hyponatremia - NA 138 - after gentle hydration overnight # Colon CA - s/p recent chemo therapy - oncology following CT chest -without new disease - old stable granulomatous disease - no additional chemotherapy recommended - hospice consult # hypovolemia/poor po intake- improved with IVF- oxygen saturations 96% on RA - dc electrolyte protocols # htn: continue op meds # anemia: 22/ chemo stable Care plan reviewed with oncology- we will start nystatin and support the CM for dispo planning Subjective: mouth is bothering her Objective: Vital Signs Temp Pulse Resp BP Pulse Ox 36.6 C 59 L 17 173/93 H 98 01/21/17 08:00 01/21/17 08:00 01/21/17 08:00 01/21/17 08:00 01/21/17 08:00 Laboratory Results 01/14/17 04:38 01/17/17 03:51 01/20/17 01/21/17 01/22/17 05:59 05:59 05:59 Intake Total 700 800 Balance 700 800 - Physical Exam Constitutional: chronically ill appearing Eyes: anicteric sclera Ears, Nose, Mouth, Throat: dry mucous membranes, other (plaques that look like thrush) Cardiovascular: regular rate and rhythym Respiratory: no respiratory distress, no rales or rhonchi Gastrointestinal: normoactive bowel sounds, soft, non-tender abdomen Genitourinary: no bladder fullness Skin: warm, normal color Musculoskeletal: No asymmetric calves Neurologic: AAOx3 Psychiatric: interacting appropriately Lymph, Heme, Immunologic: no cervical LAD ICD10 Worksheet Patient Problems: Problems Problem Status Onset C. difficile diarrhea Acute ~01/07/17 Stomatitis Acute Colon cancer metastasized to liver Chronic
[2017-01-21] MEDS: NYSTATIN SUSP 500000 UNIT/5 ML UDCUP PO SCH ×2 (16:21→20:29)
[2017-01-21] MEDS: HYDROCODONE/APAP 5/325 TAB PO PRN (18:32)
[2017-01-21 20:33] VITALS: RESP 16
[2017-01-22] MEDS: NYSTATIN SUSP 500000 UNIT/5 ML UDCUP PO SCH ×2 (06:30→12:56)
[2017-01-22] MEDS: LIDOCAINE 2% VISCOUS 15 ML UDCUP PO PRN (06:31)
[2017-01-22] MEDS: ENOXAPARIN 30 MG/0.3 ML SYR SC SCH (07:51)
[2017-01-22] MEDS: MAGNESIUM OXIDE 400 MG TAB PO SCH (07:51)
[2017-01-22] MEDS: morphINE SR 30 MG TAB PO SCH (07:51)
[2017-01-22] MEDS: DEXAMETHASONE 2 MG TAB PO SCH (07:51)
[2017-01-22 08:02] VITALS: BP 147/77; PULSE 66; TEMP 97.4; O2SAT 97
[2017-01-22] MEDS: FLUTICASONE NASAL 120 SPRAYS/16 GM MDI EACHNARE SCH (08:13)
--- NOTE | 2017-01-22 11:08 | PDIAF ---
- Diagnosis Diagnosis: colon CA Code Status: Full Code - Medication Management Discharge Medications: Medications to Continue on Transfer Ibuprofen [Motrin (*)] 600 mg PO Q8 PRN 01/01/16 [Last Taken Unknown] Maalox/Benadryl/Lidocaine Suspension 5 ml MM Q2 PRN 12/04/16 [Last Taken Unknown ] Lidocaine 2% Viscous 10 ml PO Q4 PRN #100 ml 12/08/16 [Last Taken Unknown] morphINE SR [MS Contin/Oramorph SR 30 mg (*)] 30 mg PO BID #14 tab 12/18/16 [ Last Taken Unknown] Ranitidine HCl [Acid Supervisor [employer] Quality] 150 mg PO BID PRN 01/07/17 [Last Taken Unknown] Dexamethasone [Decadron 2 MG (*)] 2 mg PO BID tab 01/22/17 [Last Taken Unknown] Fluticasone Nasal [Flonase Nasal [place]] 2 sprays EACHNARE DAILY mdi 01/22/17 [ Last Taken Unknown] Hydrocodone/APAP 5/325 [[place] 5/325 (*)] 1 - 2 tab PO Q4HRS PRN #0 tab 01/22/17 [Last Taken Unknown] Magnesium Oxide [Magnesium Oxide 400 mg (*)] 400 mg PO DAILY tab 01/22/17 [ Last Taken Unknown] Ondansetron Odt [Zofran Odt 4 mg (*)] 4 mg PO Q4HRS PRN #0 tab 01/22/17 [Last Taken Unknown] diphenhydrAMINE [Benadryl 25 MG (*)] 25 mg PO Q6 PRN #0 cap 01/22/17 [Last Taken Unknown] Discharge Medications: Refer to the Discharge Home Medication list for PRN reason. - Orders Services needed: Registered Nurse, Master Gyro Mechanic Diet Recommendation: no restrictions on diet Diet Texture: Regular Texture Diet - Follow Up Care Current Providers and Referrals: Patient,NotPresent [Primary Care Provider] -
--- NOTE | 2017-01-22 18:05 | GDS ---
[f rep st] DISCHARGE SUMMARY DISCHARGE DIAGNOSES: Include. 1. Acute Clostridium difficile colitis. 2. Colon cancer. 3. Mucositis secondary to chemotherapy. 4. Hyponatremia secondary to hypovolemia. 5. Hypertension. 6. 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 HISTORY OF PRESENT ILLNESS: This is a 61-year-old female with a history of stage IV colon cancer re ceiving chemotherapy who presents with nausea, vomiting, and abdominal pain. For details of patient 's initial presentation, please see the history and physical dated 01/07/2017. CONSULTATIVE SERVICES: Include Oncology. PROCEDURES: On 01/12/2017, patient had a CT of the abdomen and pelvis, which showed improvement in the descending colonic wall colitis. HOSPITAL COURSE: By issue. 1. Acute C difficile colitis. The patient was initiated on oral vancomycin therapy and completed h er full 2 week course during her hospital stay. She is passing formed stools on the day of disposit ion and will not be continued on ongoing vancomycin therapy. 2. Stage IV colon cancer. Patient is not felt to be a candidate for ongoing therapy at this time. Palliative Care was consulted and the patient is being discharged to long term with hospice c are. 3. Hyponatremia secondary to hypovolemia. The patient's sodium levels were normal after fluid resu scitation. 4. Mucositis secondary to chemotherapy. Patient is receiving treatment with both nystatin and MBX solution for symptom control. MEDICATIONS AT THE TIME OF TRANSFER: Please reference med rec printed on 01/22/2017. FOLLOWUP APPOINTMENTS: Include the long term facility with our on staff physician as well as with [facility] as needed. PENDING STUDIES: At the time of this dictation are none. TIME SPENT: I spent greater than 30 minutes in the planning and coordination of this discharge. /[id number]/MODL
== END 2017-01-22 16:25 | DRG 372 ==
LOC: F1N 14:48 → OBSVTOIN 15:20
PROVIDERS: ADMIT Internal Medicine; ATTEND Hospitalist
DX: A04.7 Enterocolitis due to Clostridium difficile (principal); R11.2 Nausea with vomiting, unspecified; T45.1X5A Adverse effect of antineoplastic and immunosuppressive drugs, initial encounter; C18.9 Malignant neoplasm of colon, unspecified; C79.9 Secondary malignant neoplasm of unspecified site; E87.1 Hypo-osmolality and hyponatremia; K12.31 Oral mucositis (ulcerative) due to antineoplastic therapy; I10 Essential (primary) hypertension; K21.9 Gastro-esophageal reflux disease without esophagitis; E86.1 Hypovolemia; D64.81 Anemia due to antineoplastic chemotherapy; R09.81 Nasal congestion
CPT/HCPCS: 97165-GO; J1200; J1650; J2405; J2550; J3475; J8520; Q9967